=== PATIENT | female | born 1975 | race Caucasian/White ===

== ENCOUNTER 2025-08-21 05:01 | Emergency (ER) | payer MEDICAID, SELFPAY ==
--- OUTSIDE RECORDS SUMMARY | 2025-03-07 04:00 | XMS_ITS ---
Author Organization [facility] Address [address] [place] [address] Care Team Providers Care Health And Wellness Instructor Name Role Phone None, No PCP Primary Care Provider Hesham Chi Unavailable [phone] REASON FOR VISIT f/u Labs Encounters Encounter Location Date Provider Diagnosis [facility] [address] [place] [address] 03/07/2025 Hesham Astudillo Plan Of Treatment Next Appt Details Provider Name:Sharri buckley, 08/28/2025 03:45:00 PM, [address] [place], [address], Provider Name:Hesham Astudillo, 01/20/2026 03:45:00 PM, [address] [place], [address], Provider Name:Hesham Astudillo, 02/04/2026 09:30:00 AM, [address] [place], [address], Progress Notes * Jadyn KELLYDOB: 5 (50 yo F)Acc No.[id number]:03/07/2025 Patient:?Jadyn KELLY :?SHIRA MonroyB:1975???Age:49 Y ???Sex:FemaleDate:03/07/2025Phone:[phone]:[address] [facility] [place], [place]Vtl:No PCP None Subjective: * Chief Complaints: * 1 . f/u Labs. * Medical History: Objective: * Vitals: Assessment: Plan: * Treatment: * Images: Billing Information: * Visit Code: * Procedure Codes: * Electronic signature of Hesham Astudillo on 08/21/2025 at 06:35 AM CSTSign off status: Pending * Provider: ARACELIS Gomes Date: 0 03/07/2025 Generated for Printing/Faxing/eTransmitting on:?08/21/2025 06:35 AM RECOVERY OPERATOR HELPER
--- OUTSIDE RECORDS SUMMARY | 2025-04-25 04:30 | XMS_ITS ---
Author Organization [facility] Address [address] [place] [address] Care Team Providers Care Safety Deposit Clerk Name Role Phone None, No PCP Primary Care Provider Sharri Bhandari Unavailable [phone] Allergies No Known Allergies REASON FOR VISIT HRT LABS F/U, questions/concerns; Medications Medication SIG (Take, Route, Frequency, Duration) Notes Start Date End Date Status Lisinopril ActiveoxyBUTYninActiveMagnesiumActiveEstradiol 0.05 MG/24HR1 patch to skin Transdermal Two times a Week; Duration: 60 days5ActiveProgesterone 100 MG1 capsule at bedtime Orally Once a day; Duration: 90 days5Active Vitamin DActiveMisc Natural ProductLions ManeActiveVitamin B Plus+Active Ozagzhvkgbtr7ew lozenge 1/2 lozengeActiveEstradiol 0.0375 MG/24HR1 patch to skin Transdermal Two times a Week; Duration: 90 days5Active Social History Tobacco Use: Social History Observation Description Date Details (start date - stop date) Never Smoker NA - NA Tobacco Control (Standard) Question Answer Notes Tobacco use: Nonsmoker Encounters Encounter Location Date Provider Diagnosis [facility] [address] [place] [address] 04/25/2025 Sharri Guillaume Plan Of Treatment Next Appt Details Provider Name:Sharri buckley, 08/28/2025 03:45:00 PM, [address] [place], [address], Provider Name:Hesham Astudillo, 01/20/2026 03:45:00 PM, [address] [place], [address], Provider Name:Hesham Astudillo, 02/04/2026 09:30:00 AM, [address] [place], [address], Progress Notes * Jadyn KELLYDOB: 5 (50 yo F)Acc No.[id number]:04/25/2025 Patient:?Jadyn KELLY :?Sharri DomingoleDOB:1975???Age:50 Y ???Sex:FemaleDate:04/25/2025Phone:[phone]:[address] [facility]Pcp:No PCP None Subjective: * Chief Complaints: * 1 . HRT LABS F/U. 2. Questions/concerns;. * Medical History: D epression/ Anxiety, High blood pressure, Hemostasis. * Disposition Clerk History: ???Date of Last Period:?09/22/2024.? Control: ?IUD.?Sexual Activity?Currently sexually active.?Sexually Tranmitted Disease (STD)?None.? * OB History: ???GPAL?.? # 1:?2005. M 7lbs , normal spontaneous vaginal delivery ().&#16 0; ??? # 2:?2008, M 7lbs , normal spontaneous vaginal delivery ().&#16 0; * Surgical History: D enies Past Surgical History. * Hospitalization/Major Diagno stic Procedure: C hild . * Family History: Maternal Grandmother- Breast Cancer Mother- High Blood Pressure Father- Alzheimers disease. * Social History: ???Tobacco Use:?Tobacco Control (Standard)?Tobacco use:?Nonsmoker ???Drugs/Alcohol:?Caffeine?Intake:?none ?Do you smoke marijuana?: Denies. ?Do you drink alcohol?: No. ???Miscellaneous:?Exercise: no. * Medications: T aking Estradiol 0.0375 MG/24HR Patch Twice Weekly 1 patch to skin Transdermal Two times a Week , Taking Testosterone , Notes to Pharmacist: 8mg lozenge 1/2 lozenge, Taking Vitamin B Plus+ , Taking Misc Natural Product , Notes to Pharmacist: Lori Camiloe, Taking Vitamin D , Taking Magnesium , Taking oxyBUTYnin , Taking Lisinopril , Taking Progesterone 100 MG Capsule 1 capsule at bedtime Orally Once a day , Taking Estradiol 0.05 MG/24HR Patch Twice Weekly 1 patch to skin Transdermal Two times a Week , Medication List reviewed and reconciled with the patient * Allergies: N .K.D.A. Objective: * Vitals: Assessment: Plan: * Treatment: * Preventive Medicine: ??YOUR PREVENTIVE WELLNESS PLAN:?Breast Cancer Screening (Mammogram):?My last mammogram was done on:?04/16/2025 BI-RADS Category 1: Negative ?Cervical Cancer Screening (Pap Smear):?My last Pap smear was done on:?08/23/2022 ?Osteoporosis Screening (Bone Density Measurement):?My last bone density was done on:?Never ?Colorectal Cancer Screening:?Last Done Colonoscopy?08/24/2021 * Images: Billing Information: * Visit Code: * Procedure Codes: * Electronic signature of ARACELIS Davis on 08/21/2025 at 06:35 AM FOOD RUNNER Sign off status: Pending * Provider: Josep Guillaume Date: 0 04/25/2025 Generated for Printing/Faxing/eTransmitting on:?08/21/2025 06:35 AM FOOD RUNNER
--- OUTSIDE RECORDS SUMMARY | 2025-07-09 11:00 | XMS_ITS | Encounter Summary ---
Author Organization [facility] Address [address] [place] [address] Care Team Providers Care Estate Administrator Name Role Phone Shad Martell MD Unavailable [phone] LoriBin MD Primary Care Provider León Shepard OD Unavailable [phone] LoriBin MD Unavailable Bin Sandoval MD Unavailable Dallas Vergara Unavailable [phone] Jazz Howell PA-C Unavailable [phone] Jazz Howell PA-C Unavailable [phone] Encounter Details DateTypeDepartmentCare Team (Latest Contact Info)Hvaslrndkhu12/18/2025 11:00 AM CSTAllied Health/Nurse Visit [facility] [address] [facility] [address] [place] [address] Urge urinary incontinence (Primary Dx) Social History Tobacco UseTypesPacks/DayYears UsedDateSmoking Tobacco: VbhowwWsvadelxyd2Llsy: 2014Passive Smoke Exposure: PastSmokeless Tobacco: Never Comments:quit, was just ocas ionally 10 cigarettes on a weekend Alcohol UseStandard Drinks/WeekCommentsYes0 (1 standard drink = 0.6 oz pure alcohol)3-5 weekly, glass wineSocial Connection and Isolation PanelAnswerDate RecordedIn a typical week, how many times do you talk on the phone with family, friends, or neighbors?More than three times a week03/09/2022How often do you get together with friends or relatives?Three times a week03/09/2022How often do you attend muslim or buddhist services?Never03/09/2022o you belong to any clubs or organizations such as muslim groups, unions, fraternal or athletic groups, or school groups?No03/09/2022ttends Club or Organization MeetingsNot on file 03/09/2022re you , , , , never , or living with a partner?Mlsazag2303/09/2022UDIT-CAnswerDate RecordedQ1: How often do you have a drink containing alcohol?2-3 times a week03/09/2022Q2: How many drinks containing alcohol do you have on a typical day when you are drinking?1 or Q3: How often do you have six or more drinks on one occasion?Less than jnxldys6603/09/2022HQ-2AnswerDate RecordedPHQ-2 Bynrh876Finsteward health care system [place] of Occupational Health - Occupational Stress QuestionnaireAnswerDate RecordedDo you feel stress - tense, restless, nervous, or anxious, or unable to sleep at night because yourmind is troubled all the time - these days?Only a nvktrg6503/09/2022Exercise Vital SignAnswerDate RecordedOn average, how many days per week do you engage in moderate to strenuous exercise (like a brisk walk)?4 days03/09/2022n average, how many minutes do you engage in exercise at this level?50 min03/09/2022dolescent EducationAnswerDate RecordedGetting School Help NeededNot on file05/13/2023Food InsecurityAnswerDate RecordedWithin the past 12 months, did you worry that your food would run out before you got money to buy more?No08/10/2023Within the past 12 months, did the food you bought just not last and you didn???t have money to getmore?No08/10/2023Housing StabilityAnswer Date RecordedDo you have housing? (Housing is defined as stable permanent housing and does not include staying outside in a car, in a tent, in an abandoned building, in an overnight senior living, or couch-surfing.)Yes08/10/2023re you worried about losing your housing?No08/10/2023Financial Resource Strain AnswerDate RecordedWithin the past 12 months, have you or your family members you live with been unable to get utilities (heat, electricity) when it was really needed?No08/10/2023Transportation NeedsAnswerDate RecordedWithin the past 12 months, has lack of transportation kept you from medical appointments, getting your medicines, non-medical meetings or appointments, work, or from getting things that you need?No08/10/2023Interpersonal SafetyAnswerDate Recorded Do you feel physically and emotionally safe where you currently live?Yes 11/13/2024Within the past 12 months, have you been hit, slapped, kicked or otherwise physically hurt by someone?No11/13/2024Within the past 12 months, have you been humiliated or emotionally abused in other ways by your partner or ex-partner?No11/13/2024CommentsNoSex and Gender InformationValueDate RecordedSex Assigned at BirthNot on fileLegal LluKxdfqm90/04/2012 3:24 AM PATENT SEARCHER Gender ObqdsllyKhvobh69/25/2025 8:45 AM CDTSexual OrientationNot on file OccupationIndustryJob Start DateJob End DatesalesNot on fileNot on fileNot on fileself employedNot on fileNot on fileNot on filedocumented as of this encounter Progress Notes * Dianne Roberts CMA - 07/09/2025 11:00 AM CST Jadyn Kelly comes into clinic today at the request of Jazz Howell PA-C for PTNS treatment. This service provided today was under the direct supervision of Dr. Salas, who was available if needed. Percutaneous Tibial Nerve Stimulation (PTNS) Treatment number : 3 Percutaneous tibial nerve stimulation (PTNS) was prescribed for Jadyn Kelly's Overactive Bladder symptoms of urinary urgency. The needle electrode was inserted into the lower, inner aspect of the right leg. The surface electrode was placed on the inside arch of the foot on the treatment leg. The lead set was connected to the stimulator, and the needle electrode clip was connected to the needle electrode. The stimulator that produces an adjustable electrical pulse that travels to the sacralnerve plexus via the tibial nerve was adjusted to a setting of 1 with good toe curl noted. The patient experienced no changes since the last treatment. Edyta Roberts CMA NT SEARCHER documented in this encounter Plan of Treatment DateTypeDepartmentCare Team (Latest Contact Info)Ifocdnihlfz73/21/2026 10:15 AM CSTLab [facility] [address] [place] [address] 09/13/2025 10:00 AM CSTOncology Visit [address] [place] [address] [place] [address] [place], [place] [address] 09/13/2025 11:00 AM CSTInfusion Therapy Visit [address] [place] [phone] [place] [address] [place], [place] [address] documented as of this encounter Procedures Procedure NamePriorityDate/TimeAssociated DiagnosisCommentsPR POST TIBIAL NEUROSTIMULATION,PERC NEEDLE LSAFVOPPAAaiomar32/18/2025 11:31 AM PATENT SEARCHER Urge urinary incontinence documented in this encounter Visit Diagnoses Diagnosis Urge urinary incontinence- Primary Urge incontinence documented in this encounter Additional Health Concerns AssessmentNoted TimePHQ-9 Depression Total Score: 6003/27/2025 10:49 AM CDT documented as of this encounter Care Teams Team MemberRelationshipSpecialtyStart [place] [address] [place] [address] PCP - GeneralFamily Medicine09/11/23 Shad Martell MD [address], [facility] [address] [place] [address] MDHematology & Oncology02/24/23 León Shepard OD [address] [place] [address] Optometry11/15/24 [place] [address] [place] [address] Referring PhysicianFamily Medicine11/15/24 [place] [address] [place] [address] Assigned PCP12/12/24 [place] [address] [address] [facility] [address] [place] [address] Assigned Cancer Care Provider02/11/25 Jazz Howell PA-C [address] [place], [place] [address] Physician AssistantUrology02/13/25 Jazz Howell PA-C [address] [place], [place] [address] Assigned Surgical Provider04/13/25documented as of this encounter
--- OUTSIDE RECORDS SUMMARY | 2025-07-16 13:30 | XMS_ITS | Encounter Summary ---
Author Organization [facility] Address [address] [place] [address] Care Team Providers Care First Aid Attendant Name Role Phone Shad Martell MD Unavailable [phone] OlriBin MD Primary Care Provider León Shepard OD Unavailable [phone] LoriBin MD Unavailable Bin Sandoval MD Unavailable Dallas Vergara Unavailable [phone] Jazz Howell PA-C Unavailable [phone] Jazz Howell PA-C Unavailable [phone] Encounter Details DateTypeDepartmentCare Team (Latest Contact Info)Bfvlvbxebgz90/25/2025 1:30 PM CSTAllied Health/Nurse Visit [facility] Urology Clinic [address] [facility] [address] [place] [phone] Urinary urgency (Primary Dx) Social History Tobacco UseTypesPacks/DayYears UsedDateSmoking Tobacco: CewxmxZejrbrfkks2Shez: 2014Passive Smoke Exposure: PastSmokeless Tobacco: Never Comments:quit, [...] times a week03/09/2022How often do you attend advent or islam services?Never03/09/2022o you belong to any clubs or organizations such as advent groups, unions, fraternal or athletic groups, or school groups?No03/09/2022ttends Club or Organization MeetingsNot on file 03/09/2022re you , , , , never , or living with a partner?Hqnqyxf7503/09/2022UDIT-CAnswerDate RecordedQ1: How often do you have a drink containing alcohol?2-3 times a week03/09/2022Q2: How many drinks containing alcohol do you have on a typical day when you are drinking?1 or Q3: How often do you have six or more drinks on one occasion?Less than eoxivfi7603/09/2022HQ-2AnswerDate RecordedPHQ-2 Emebv345Finbeaver valley hospital [place] of Occupational Health - Occupational Stress QuestionnaireAnswerDate RecordedDo you feel stress - tense, restless, nervous, or anxious, or unable to sleep at night because yourmind is troubled all the time - these days?Only a iudafb1603/09/2022Exercise Vital SignAnswerDate RecordedOn average, how many days [...] in an abandoned building, in an overnight group home, or couch-surfing.)Yes08/10/2023re you worried about losing your [...] InformationValueDate RecordedSex Assigned at BirthNot on fileLegal NffSashhn21/04/2012 3:24 AM POSTPARTUM RN Gender BbyihlafVdtzda17/25/2025 8:45 AM CDTSexual OrientationNot on file OccupationIndustryJob Start DateJob End DatesalesNot on fileNot on fileNot on fileself employedNot on fileNot on fileNot on filedocumented as of this encounter Progress Notes * Dianne Roberts CMA - 07/16/2025 1:30 PM CST Jadyn Kelly comes into clinic today at the request of Jazz Howell PA-C for PTNS treatment. This service provided today was under the direct supervision of Dr. Salas, who was available if needed. Percutaneous Tibial Nerve Stimulation (PTNS) Treatment number : 4 Percutaneous tibial nerve stimulation (PTNS) was prescribed [...] nerve was adjusted to a setting of 3 with good toe curl noted. The patient experienced no changes since the last treatment. Edyta Roberts CMA PARTUM RN documented in this encounter Plan of Treatment DateTypeDepartmentCare Team (Latest Contact Info)Jkdsqyzrqaa14/21/2026 10:15 AM CSTLab [facility] [address] [place] [address] 09/13/2025 10:00 AM CSTOncology Visit [address] [place] [phone] [place] [address] [facility] [address] [place], [place] [address] 09/13/2025 11:00 AM CSTInfusion Therapy Visit [address] [place] [phone] [place] [address] [facility] [address] [place], [place] [address] documented as of this encounter Procedures Procedure NamePriorityDate/TimeAssociated DiagnosisCommentsPR POST TIBIAL NEUROSTIMULATION,PERC NEEDLE XHPYOPJICEllpesu57/25/2025 2:16 PM POSTPARTUM RN Urinary urgency documented in this encounter Visit Diagnoses Diagnosis Urinary urgency- Primary Urgency of urination documented in this encounter Additional Health Concerns AssessmentNoted TimePHQ-9 Depression Total Score: 6003/27/2025 10:49 AM CDT documented as of this encounter Care Teams Team MemberRelationshipSpecialtyStart [place] [address] [place] [address] PCP - GeneralFamily Medicine09/11/23 Shad Martell MD [address] [facility] [address] [place] [address] MDHematology & Oncology02/24/23 León Shepard OD [address] [place] [address] Optometry11/15/24 [place] [address] [place] [address] Referring PhysicianFamily Medicine11/15/24 [place] [address] [place] [address] Assigned PCP12/12/24 [place] [address] [address] [facility] [address] [place] [address] Assigned Cancer Care Provider02/11/25 Jazz Howell PA-C [address] [place], [place] [address] Physician AssistantUrology02/13/25 Jazz Howell PA-C [address] [place], [place] [address] Assigned Surgical Provider04/13/25documented as of this encounter
--- OUTSIDE RECORDS SUMMARY | 2025-08-12 04:30 | XMS_ITS ---
Author Organization [facility] Address [address] [place] [address] Care Team Providers Care Extension Clerk Name Role Phone None, No PCP Primary Care Provider UnavailSharri Donis Unavailable [phone] Allergies Allergen (clinical drug ingredient) Drug/Non Drug Allergy documented on EMR Reaction Allergy Type Onset Date Status angiotensin-converting enzyme inhibitor (FN) ZION Inhib itors Unknown Drug Allergy Active REASON FOR VISIT HRT f/U, questions/concerns: none, JL RMA Medications Medication SIG (Take, Route, Frequency, Duration) Notes Start Date End Date Status Estradiol 0.075 MG/24HR 1 patch to skin Transdermal Two times a Week; Duration: 90 days 5ActiveEstradiol 0.075 MG/24HR1 patch to skin Transdermal Two times a Week; Duration: 30 daysActiveProgesterone 200 MG1 capsule at bedtime Orally Once a day; Duration: 90 days5ActiveVitamin DActiveVitamin B Plus+Active IgfmcwngexLrcltjNjppfkykdTcvoauEhhzcdpprqli9vk lozenge 1/2 lozengeActive Social History Tobacco Use: Social History Observation Description Date Details (start date - stop date) Never Smoker NA - NA Tobacco Control (Standard) Question Answer Notes Tobacco use: Nonsmoker Vital Signs Blood pressure systolic 130 mm Hg 08/12/20 25 Blood pressure diastolic 80 mm Hg 025 Height 66 in 08/12/2025 Weight 182.2 lbs 08/12/2025 BMI 29.4 kg/m2 08/12/2025 Encounters Encounter Location Date Provider Diagnosis 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 Will return in the next 1-2 weeks for an afternoon lab draw. Assuming testosterone is in acceptable range, will plan on staying on current doses and following up in 6 months with labs 1 week prior Plan Of Treatment Medication Medication Name Sig Start Date Stop Date Notes Progesterone 100 MG TAKE ONE CAPSULE BY MOUTH AT BEDTIME Estradiol 0.075 MG/24HR1 patch to skin Transdermal Two times a Week; Duration: 90 days08/05/2025Progesterone 200 MG1 capsule at bedtime Orally Once a day; Duration: 90 days06/24/2025Treatment Notes Assessment Notes Hemochromatosis associated w ith mutation in HFE gene Lead Installer consulted, no concern with hemochromatosis and her T levels Other - continue on current therapies - we do not have an updated testosterone level. Will return in the next 1-2 weeks for an afternoon lab draw. Assuming testosterone is in acceptable range, will plan on staying on current doses and following up in 6 months with labs 1 week prior Next Appt Details Follow Up: 6 Months,kaityn, Zainab son: Provider Name:Sharri buckley, 08/28/2025 03:45:00 PM, [address], [place], [address], Provider Name:Hesham Astudillo, 01/20/2026 03:45:00 PM, [address] [place], [address], Provider Name:Hesham Astudillo, 02/04/2026 09:30:00 AM, [address] [place], [address], Progress Notes * Jadyn KELLYDOB: [birth year] (50 yo F)Acc No.[id number]:08/12/2025 Patient:?Jadyn KELLY :?Sharri DomingoleDOB:1975???Age:50 Y ???Sex:FemaleDate:08/12/2025Phone:[phone]:[address], [id number]:No PCP NoneCheck In:10:30 AM CSTCheck Out:10:52 AM SCHOOL CLERK Subjective: * Chief Complaints: * H RT f/UQuestions/concerns: noneJL RMA * HPI: ???*General:?Initial symptoms/complaints include??brain fog, Joint pain, Hot flashes, night sweats, hip pain, hand pain .?Ferritin checked monthly due to?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 PMH reviewed, also notable for HTN, anxiety, insomnia, herpes labalis. Jadyn Kelly, a perimenopausal woman, presents for follow-up of hormone replacement therapy.?She feels better being back on testosterone. Improvements in energy. Hot flashes continue to be resolved. No further vaginal bleeding since last appointment.? Current therapy Estradiol 0.75 mg transdermal patch twice weekly Progesterone 200 mg PO nightly 4 mg per half testosterone lozenge daily. * Medical History: * Manager Procurement History: ???Date of Last Period:?05/22/2025, 09/22/2024.? Control: ?IUD.?Sexual Activity?Currently sexually active.?Sexually Tranmitted Disease (STD)?None.? * OB History: ???GPAL?.? # 1:?2005. M 7lbs , normal spontaneous vaginal delivery ().&#16 0; ??? # 2:?2009, M 7lbs , normal spontaneous vaginal delivery ().&#16 0; * Surgical History: D enies Past Surgical History * Hospitalization/Major Diagno stic Procedure: C hild * Family History: Maternal Grandmother- Breast Cancer Mother- High Blood Pressure Father- Alzheimers disease. * Social History: ???Tobacco Use:?Tobacco Control (Standard)?Tobacco use:?Nonsmoker ???Drugs/Alcohol:?Caffeine?Intake:?none ?Do you smoke marijuana?: Denies. ?Do you drink alcohol?: No. ???Miscellaneous:?Exercise: no. * Medications: T akingTestosterone , Notes to Pharmacist: 8mg lozenge 1/2 lozengeVitamin B Plus+ Vitamin D Magnesium Lisinopril Progesterone 100 MG Capsule TAKE ONE CAPSULE BY MOUTH AT BEDTIME Progesterone 200 MG Capsule 1 capsule at bedtime Orally Once a day Estradiol 0.075 MG/24HR Patch Twice Weekly 1 patch to skin Transdermal Two times a Week Estradiol 0.075 MG/24HR Patch Twice Weekly 1 patch to skin Transdermal Two times a Week Taking Testosterone , Notes to Pharmacist: 8mg lozenge 1/2 lozengeTaking Vitamin B Plus+ Taking Vitamin D Taking Magnesium Taking Lisinopril Taking Progesterone 100 MG Capsule TAKE ONE CAPSULE BY MOUTH AT BEDTIME Taking Progesterone 200 MG Capsule 1 capsule at bedtime Orally Once a day Taking Estradiol 0.075 MG/24HR Patch Twice Weekly 1 patch to skin Transdermal Two times a Week Taking Estradiol 0.075 MG/24HR Patch Twice Weekly 1 patch to skin Transdermal Two times a Week DiscontinuedoxyBUTYnin Medication List reviewed and reconciled with the patientDiscontinued oxyBUTYnin Medication List reviewed and reconciled with the patient * Allergies: A CE Inhibitorsno[Allergies Verified] Objective: * Vitals: H t: 66 in, Wt:182.2lbs, BP:130/80mm Hg, BMI:29.4Index. * P ast Orders: L ab:Testosterone, Total (IH) (Order Date - 05/28/2025) (Collection Date & Time - 05/29/2025 12:30 PM) Value Reference Range Testosterone, Total (IH) 45 0-75 - ng/dL * Lab:FSH * Collection Date 05/29/2025 04/15/2025 Collection Time 03:21 AM 01:55 PM Order Date 05/28/2025 04/15/2025 FSH 13.5 (Ref Range: mIU/mL)46.9 (Ref Range: mIU/mL) * Lab:ESTRADIOL * Collection Date 05/29/2025 04/15/2025 Collection Time 03:21 AM 01:55 PM Order Date 05/28/2025 04/15/2025 ESTRADIOL 68 (Ref Range: pg/mL)29 (Ref Range: pg/mL) * Examination: ???*General Examination: ?GENERAL APPEARANCE:?in no acute distress, alert, well hydrated, in no distress.? Assessment: * Assessment: 1.?Menopausal and female climacteric states - N95.1 (Primary)???2.?Low test osterone level in female - E34.9???3.?Hemochromatosis associated with mutation i n HFE gene - E83.110??? Plan: * Treatment: Stop Progesterone Capsule, 100 MG, TAKE ONE CAPSULE BY MOUTH AT BEDTIME;?Refill Progesterone Capsule, 200 MG, 1 capsule at bedtime, Orally, Once a day, 90 days, 90 Capsule, Refills 1;?Refill Estradiol Patch Twice Weekly, 0.075 MG/24HR, 1 patch to skin, Transdermal, Two times a Week, 90 days, 24, Refills 1.?? 2.?Hemochromatosis 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? Notes: Lead Installer consulted, no concern with hemochromatosis and her T levels??3.?Others? Notes: - continue on current therapies - we do not have an updated testosterone level. Will return in the next 1-2 weeks for an afternoon lab draw. Assuming testosterone is in acceptable range, will plan on staying on current doses and following up in 6 months with labs 1 week prior ?? * Procedure Codes: * Preventive Medicine: ??YOUR PREVENTIVE WELLNESS PLAN:?Breast Cancer Screening (Mammogram):?My last mammogram was done on:?04/16/2025 BI-RADS Category 1: Negative ?Cervical Cancer Screening (Pap Smear):?My last Pap smear was done on:?08/23/2022 ?Osteoporosis Screening (Bone Density Measurement):?My last bone density was done on:?Never ?Colorectal Cancer Screening:?Last Done Colonoscopy?08/24/2021 * Follow Up: 6 Months,prn * Images: Billing Information: * Visit Code: 90623 Office Visit, Est Pt., Level 3. * Procedure Codes: * OL CLERK Sign off status: Completed true * Provider: Josep Guillaume Date: 10/13/2024 Generated for Printing/Faxing/eTransmitting on:?08/21/2025 06:35 AM SCHOOL CLERK History and Physical Notes * Examination CategorySub-CategoryDetailNotesCategory Notes*General ExaminationGENERAL APPEARANCE:in no acute distress, alert, well hydrated, in no distress
[2025-08-21 05:05] VITALS: BP 153/90; PULSE 117; RESP 16; TEMP 36.7; O2SAT 93; BMI 28.2
--- NOTE | 2025-08-21 05:34 | CRLHL7_ITS ---
For Patients: As a result of the Century Cures Act, medical imaging exams and procedure reports are released immediately into your electronic medical record. You may view this report before your referring provider. If you have questions, please contact your health care provider. INDICATION: Chest pain. TECHNIQUE: Chest 2 views. COMPARISON: None. FINDINGS: Cardiovascular and mediastinum: Heart size is normal. Unremarkable mediastinum. Lungs and pleural spaces: Lungs are clear. No pneumothorax or pleural effusion. Bones and soft tissues: No significant findings. IMPRESSION: No acute findings. Dictated by Cary Enriquez MD @ 08/21/2025 6:43:57 AM (Electronically Signed)
--- NOTE | 2025-08-21 05:39 | ED.GENADULT ---
HPI - General Adult General Chief complaint: Chest Pain Stated complaint: chest/back pain Time Seen by Provider: 08/21/25 05:11 Source: patient Mode of arrival: ambulatory Limitations: no limitations History of Present Illness HPI narrative: 50-year-old female presents the emergency department in the wee hours for evaluation of chest pain she notes that this is substernal, radiates to both shoulders and to the back and worsens with taking drinks of water. No trauma or injury. No nausea or vomiting. No bloody stools. No prior history of similar symptoms. No personal history of cardiac disease, DVT or PE. Not noting any feelings of arrhythmia. Episodic pain 7/10 in intensity when the episodes come which last 5-10 minutes. Pain initially started at 9:00 p.m. last night, lasted about 5-10 minutes and then resolve spontaneously. Woke with symptoms at about 1:00 a.m. again and lasted a similar amount of time. Do seem to be worsened by taking drinks of water. Currently asymptomatic. Symptoms are nonexertional. Did not try taking any treatments prior to coming to the ED. Noted to be tachycardic in triage. Does feel a little bit short of breath with episodes but not in between. Has had a dry cough and scratchy throat for less than 24 hours. Past medical history is notable for hypertension, takes losartan for this. She does also use topical transdermal estrogen and oral progesterone as well as Adderall. Adderall could explain the tachycardia. Allergy to Carroll inhibitors causing a cough. Nonsmoker. ROS is notable for the chest symptoms as well as some vague shortness of breath and cough as above, otherwise denies times 12 systems. Related Data Previous Rx's ?Medication ?Instructions ?Recorded oseltamivir 75 mg capsule (Tamiflu) 75 mg PO BID 5 days #10 caps 08/21/25 Allergies Allergy/AdvReac Type Severity Reaction Status Date / Time CARROLL Inhibitors Allergy Cough Verified 08/21/25 05:10 Exam Const: Vital Signs, click to edit/add: Vital Signs - 24 hr 08/21/25 05:05 Temperature 98.1 F Pulse Rate [Pulse Oximeter] 117 H Respiratory Rate 16 Blood Pressure [Ri ght Upper Arm] 153/90 H Pulse Oximetry 93 Oxygen Delivery Me thod Room Air Documenting provider has reviewed patient's vital signs: yes Common normals: no apparent distress and alert General appearance: cooperative HENMT: Common normals: normocephalic, moist oral mucous membranes and oropharynx normal Head and scalp: normocephalic Face and sinus: normal facial exam Mouth: oral and palatal mucosa normal Throat: posterior oropharynx normal Eye: Common normals: conjunctivae normal General eye: normal appearance of both eyes Conjunctiva: conjunctiva(e) normal Neck & C-Spine: Common normals: full ROM and no lymphadenopathy General: normal visual inspection Chest: Common normals: inspection of chest normal Resp: Common normals: normal respiratory effort, no use of accessory muscles and clear to auscultation bilaterally Effort & inspection: able to speak in complete sentences Auscultation: clear to auscultation bilaterally Cardio: Common normals: regular rate, regular rhythm, S1 normal heart sound, S2 normal heart sound and no murmurs Rate: regular rate Rhythm: regular rhythm Heart sounds: S1 normal and S2 normal GI: Common normals: Normal to inspection, nondistended, normoactive bowel sounds present, soft to palpation, non-tender, no hepatosplenomegaly and no masses Palpation: soft and no hepatosplenomegaly Extremity: Common normals: normal capillary refill Neuro: Sensorium/orientation: alert Speech: speech normal Motor exam: strength 5/5 throughout Psych: Attitude: engaged Activity/motor behavior: appropriate eye contact Attention/concentration: attention grossly intact Memory/cognition: memory grossly intact Skin: Common normals: no rashes or lesions noted General skin exam: no rashes or lesions noted Course Course ED Course: 50-year-old female presenting with chest pain that seems to be brought on by esophageal stretching, no prior history of endoscopy or known GERD. Is having some vague viral symptoms such to scratchy throat and cough as well that could be related. Differential diagnosis also including acute coronary syndrome, arrhythmia, pulmonary embolism, bronchitis, pneumonia, GERD, gallbladder disease, amongst others. Noted to have some tachycardia in triage, blood pressure slightly elevated. This certainly could be from her Adderall but could indicate more serious pathology. Will obtain EKG, chest x-ray, typical cardiac labs including D-dimer. Will try famotidine and a GI cocktail as her symptoms really do seem to be triggered by soft and she will stretch. Await clinical response and findings from labs and imaging. Reevaluation(s) Time of Reevaluation #1: 06:48 Reevaluation #1: Patient noticing improvement of her symptoms after the GI cocktail. We reviewed her normal x-ray and lab findings. The only stand out was that she is positive for influenza A. I do certainly think this explains her shortness of breath, scratchy throat, cough and feeling unwell. It may be causing some GI irritation that is causing the esophageal spasm that caused her to come in today. But she certainly could have some underlying GERD or chronic irritation. We discussed Tamiflu. She accepts the risks and benefits of this medication, 1 pill 2 times daily for 5 days sent to local pharmacy. Quarantine for at least 24 hours after starting the Tamiflu. Discussed typical course of influenza and alarm symptoms that would warrant re-evaluation. I do think that this chest pain is related to some chronic cardiac issues and I would like for her to start taking famotidine 20 mg once daily for the next 2 weeks. If she has persistent symptoms, she should follow-up with her primary care doctor to discuss further testing and possibly endoscopy. Patient verbalizes understanding and agreement. Written instructions provided. Vital Signs Vital signs: Initial Vital Signs Temperature 98.1 F 08/21/25 05:05 Temperature Source Temporal Artery Scan 08/21/25 05:05 Pulse Rate 117 H 08/21/25 05:05 Respiratory Rate 16 08/21/25 05:05 Blood Pressure 153/90 H 08/21/25 05:05 Blood Pressure Mean 111 H 08/21/25 05:05 Blood Pressure Position Sitting 08/21/25 05:05 Pulse Oximetry 93 08/21/25 05:05 Oxygen Delivery Method Room Air 08/21/25 05:05 Vital Signs Temperature 98.1 F 08/21/25 05:05 Pulse Rate 117 H 08/21/25 05:05 Respiratory Rate 16 08/21/25 05:05 Blood Pressure 153/90 H 08/21/25 05:05 Pulse Oximetry 93 08/21/25 05:05 Oxygen Delivery Method Room Air 08/21/25 05:05 Temperature 98.1 F 08/21/25 05:05 Pulse Rate 117 H 08/21/25 05:05 Respiratory Rate 16 08/21/25 05:05 Blood Pressure 153/90 H 08/21/25 05:05 Pulse Oximetry 93 08/21/25 05:05 Oxygen Delivery Method Room Air 08/21/25 05:05 Medications Administered Medications: Discontinued Medications Generic Name Dose Route Start Last Admin Trade Name Floresita PRN Reason Stop Dose Admin Famotidine 20 mg 08/21/25 05:34 08/21/25 05:44 Famotidine 20 Mg Tablet PO 08/21/25 05:35 20 mg ONCE ONE Administration Lidocaine/Aluminum/Magnesium/Simeth 30 ml 08/21/25 05:34 08/21/25 05:44 Gi Cocktail (Visc Lido/Antacid) 30 Ml PO 08/21/25 05:35 30 ml ONCE ONE Administration Medical Decision Making Lab Data Lab results reviewed: Yes I reviewed the patient's lab results Lab results narrative: Positive for influenza a, remainder of labs are otherwise reassuring. Labs: Lab Results 08/21/25 08/21/25 Range/Units 05:15 05:45 WBC 6.09 (4.50-11.00) K/uL RBC 4.30 (4.00-5.20) m/uL Hgb 14.8 (12.0-16.0) gm/dL Hct 42.2 (33.0-51.0) % MCV 98 (80-100) fL MCH 34 (26-34) pg MCHC 35 (32-36) gm/dL RDW Coeff of Eliana 11.6 (11.5-15.5) % Plt Count 157 (140-440) K/uL Neut % (Auto) 89.0 H (42.0-72.0) % Lymph % (Auto) 4.4 L (20-44) % Branch % (Auto) 4.8 (0.0-11.0) % Eos % (Auto) 1.0 (0.0-7.0) % Baso % (Auto) 0.5 (0.0-3.0) % Neut # (Auto) 5.40 (1.7-7.0) K/uL Lymph # (Auto) 0.30 L (0.90-2.90) K/uL Branch # (Auto) 0.30 (0.00-0.90) K/UL Eos # (Auto) 0.06 (0.00-0.50) K/uL Baso # (Auto) 0.03 (0.00-0.30) K/uL Abs Immat Gran (auto) 0.02 (0.00-0.30) K/uL Imm/Tot Granulo (auto) 0.3 % D-Dimer Quant (PE/DVT) 0.39 (0.00-0.50) ug/ml Sodium 133 L (135-149) mmol/L Potassium 4.3 (3.6-5.1) mmol/L Chloride 100 (96-114) mmol/L Carbon Dioxide 26 (20-32) mmol/L Anion Gap 7 (7-15) mEq/L BUN 12 (7-30) mg/dL Creatinine 0.6 (0.5-1.5) mg/dL Estimated Creat Clear 105.01 Estimated GFR 109 ml/min Glucose 120 H (60-115) mg/dL Calcium 9.4 (8.4-10.6) mg/dL Total Bilirubin 0.4 (0.1-1.5) mg/dL AST 54 H (12-35) U/L ALT 35 (4-35) U/L Alkaline Phosphatase 56 (40-150) U/L Troponin I < 0.01 (0.01-0.04) ng/mL C-Reactive Protein 1.1 H (0.5-1.0) mg/dL NT-Pro-B Natriuret Pep < 20 (See Note) pg/mL Total Protein 7.0 (6.0-8.3) g/dL Albumin 4.3 (3.3-5.0) g/dL SARS-CoV-2 (PCR) Negative SARS-CoV-2 (Negative) Influenza Type A (PCR) POSITIVE PCR FLU A A (Negative) Influenza Type B (PCR) Negative PCR FLU B (Negative) RSV (PCR) Negative PCR RSV (Negative) Imaging Data Chest x-ray: Attestation: I have reviewed the pertinent imaging results. My impression: Normal chest x-ray. No effusions, infiltrates, cardiac enlargement or other abnormalities. Radiologist's impression: FINDINGS: Cardiovascular and mediastinum: Heart size is normal. Unremarkable mediastinum. Lungs and pleural spaces: Lungs are clear. No pneumothorax or pleural effusion. Bones and soft tissues: No significant findings. IMPRESSION: No acute findings. Dictated by Cary Enriquez MD @ 08/21/2025 6:43:57 AM Discharge Plan Discharge Clinical Impression: Influenza A, Esophageal pain Patient Disposition: Home w/ Parent or Adult Condition: Improved Instructions: Influenza (DC) Additional Instructions: as we discussed, the workup to look for dangerous with the heart, lungs, any blood clots or severe infections was thankfully negative and reassuring today. No signs of any complications with those organs. He did test positive for influenza a and I do think that your having some spasm of the esophagus likely related to the influenza but possibly from some underlying chronic irritation as well. I would recommend that you start taking famotidine which is an shqx-jpb-dvqsdbn antacid medicine 1 pill once daily 20 minutes before your largest meal to help heal any stomach and esophageal irritation. Please take this for the next 2 weeks. I would like for you to make a follow-up appointment with her primary care doctor if you continue to have symptoms as I would recommend that we proceed with an endoscopy at that point. As for the influenza, this is highly contagious. You are at low risk of complications. But I would recommend since it does seem reliable that you have only been symptomatic for less than 24 hours that you begin Tamiflu which is an antiviral medication 1 pill 2 times daily. It is okay for you to use Tylenol and or ibuprofen as needed for fever, body aches, headache that are likely to evolve. Unfortunately this strain of fluid tends to be fairly severe and most people are sick for 5-7 days. You would be considered non contagious 24 hours after starting the Tamiflu. Foremost, we recommend quarantine for 48 hours if possible. You should return to the emergency department if you have severe shortness of breath, severe weakness or other alarming symptoms. Activity Level: Activity as Tolerated Discharge Diet: Regular Prescriptions: New oseltamivir [Tamiflu] 75 mg capsule 75 mg PO BID 5 Days Qty: 10 0RF Follow Up/Referrals: Bin Sandoval MD [Primary Care Provider, Family Practice] Stand Alone Forms: [employer] Info Instructions
[2025-08-21] MEDS: FAMOTIDINE 20 MG TABLET PO (05:44)
[2025-08-21] MEDS: GI COCKTAIL (VISC LIDO/ANTACID) 30 ML PO (05:44)
[2025-08-21 05:53] LABS: Hematocrit* 42.2 % (33.0-51.0); Hemoglobin* 14.8 gm/dL (12.0-16.0); Immature Granulocytes Abs Auto 0.02 K/uL (0.00-0.30); Immature Granulocytes Pct Auto 0.3 %; Mean Corpuscular HGB Conc 35 gm/dL (32-36); Mean Corpuscular Hemoglobin 34 pg (26-34); Mean Corpuscular Volume 98 fL (80-100); RDW Coefficient of Variation % 11.6 % (11.5-15.5); Red Blood Count* 4.30 m/uL (4.00-5.20); White Blood Count* 6.09 K/uL (4.50-11.00)
[2025-08-21 05:58] LABS: Lymphocytes Absolute Auto 0.30 K/uL (0.90-2.90); Slide Review Reflex No
[2025-08-21 05:58] LABS: PCR FLU A POSITIVE PCR FLU A (Negative); PCR FLU B Negative PCR FLU B (Negative); PCR RSV Negative PCR RSV (Negative); SARS PCR* Negative SARS-CoV-2 (Negative)
[2025-08-21 06:05] LABS: Albumin* 4.3 g/dL (3.3-5.0); Chloride* 100 mmol/L (96-114); Sodium* 133 mmol/L (135-149)
[2025-08-21 06:06] LABS: Potassium* 4.3 mmol/L (3.6-5.1)
[2025-08-21 06:08] LABS: Blood Urea Nitrogen* 12 mg/dL (7-30); Creatinine* 0.6 mg/dL (0.5-1.5); Est. Creatinine Clearance* 105.01; Estimated Glomerular Filt Rate 109 ml/min
[2025-08-21 06:09] LABS: Alanine Aminotransferase* 35 U/L (4-35); Alkaline Phosphatase* 56 U/L (40-150); Anion Gap 7 mEq/L (7-15); Aspartate Amino Transferase* 54 U/L (12-35); Bilirubin Total* 0.4 mg/dL (0.1-1.5); Calcium* 9.4 mg/dL (8.4-10.6); Carbon Dioxide* 26 mmol/L (20-32); Glucose* 120 mg/dL (60-115); Total Protein* 7.0 g/dL (6.0-8.3)
[2025-08-21 06:11] LABS: D Dimer Quantitative* 0.39 ug/ml (0.00-0.50)
[2025-08-21 06:20] LABS: NT Pro B Type NatriureticPept* < 20 pg/mL (See Note)
--- OUTSIDE RECORDS SUMMARY | 2025-08-21 06:35 | XMS_ITS | Clinical Summary ---
Author Organization [facility] [facility] Address [address] [place] [address] Care Team Providers Care Forest Logistics Manager Name Role Phone Shannan Coats MD Primary Care Provider + [phone] Allergies No known active allergies Medications MedicationSigDispense QuantityRefillsLast FilledStart DateEnd DateStatus sertraline (ZOLOFT) 50 mg tablet Indications:Generalized anxiety disorderTAKE ONE TABLET BY MOUTH EVERY DAY 60 Tablet 03/10/2021ctive valACYclovir (VALTREX) 1 gram tablet Indications:Herpes simplex labialisTake 2 tablets twice daily 12 hours apart 12 Tablet 07/29/2021ctive zolpidem (AMBIEN) 10 mg tablet Indications:Insomnia, idiopathicTake 1 Tablet (10 mg) by mouth at bedtime. 90 Tablet 09/08/2021ctive oxybutynin XL (DITROPAN XL) 10 mg CR tablet Take 10 mg by mouth.12/09/2022ctive semaglutide (OZEMPIC) 2 mg/3 mL pen Inject 0.25 mg subcutaneous.12/09/2022ctive ondansetron (ZOFRAN) 4 mg tablet TAKE 1 TABLET BY MOUTH EVERY 8 HOURS NEEDED FOR TWMTVR3210/06/2022ctive Active Problems ProblemNoted DateDiagnosed DateGeneralized anxiety esxifoir37/22/2021Other esqaoxs6010/13/2020Gout, sgliwxcapcx65/22/2021Myopia of right eye01/19/2019Myopia of left eye with rkgeieectxh08/31/0789Dzbritzs88/15/2005 Overview (09/08/2021): Problem list name updated by automated process. Provider to review Immunizations ImmunizationAdministration DatesNext DueCOVID-19 vaccine ([employer] 30mcg/0.3mL) PF, MDV09/08/2021,02/16/2021,01/23/2021Hepatitis A (Adult) 10/15/2010Hepatitis A, Phdyclpppjz60/24/2011Hepatitis B (Adult)10/15/2010, 11/09/2000Influenza, VUU191Influenza,LAIV4 Live Intranasal (Flumist) 05/21/2014Tdap09/08/2021,05/22/2010 Family History Medical HistoryRelationNameCommentsSkin cancerFatherCancer-breastMaternal AuntX 3Cancer-breastMaternal GrandmotherDECEASED AGE 62HyperlipidemiaMother HypertensionMotherRelationNameStatusCommentsFatherMaternal AuntX 3AliveMaternal GrandmotherDeceasedMother Social History Tobacco UseTypesPacks/DayYears UsedDateSmoking Tobacco: NeverSmokeless Tobacco: Never Tobacco Cessation:Counseling Given: Yes Alcohol UseStandard Drinks/WeekCommentsYes0 (1 standard drink = 0.6 oz pure alcohol)occassionalPHQ-2AnswerDate RecordedPHQ-2 TOTAL ZOHUM888Financial Resource StrainAnswerDate RecordedDifficulty of Paying Living ExpensesNot on file1Difficulty of Paying Living ExpensesNot on file1 CommentsNoSex and Gender InformationValueDate RecordedSex Assigned at BirthNot on fileLegal PmlKxfzwv00/14/2013 7:07 AM CSTGender IdentityNot on fileSexual OrientationNot on file Last Filed Vital Signs Vital SignReadingTime TakenCommentsBlood Sjillagb604/8205 2:43 PM CDT Hvrqs855609/08/2021 3:32 PM PZZJhdwdgvoota77.5 ??C (97.7 ??F)09/08/2021 3:32 PM CSTRespiratory Lude447009/08/2021 3:32 PM CSTOxygen Swhlryxwyl06%09/08/2021 3:32 PM CSTInhaled Oxygen Concentration--Uihqgp81.8 kg (182 lb 9.6 oz)12/28/2022 2:43 PM KKLNjjrbr685.6 cm (5' 6)09/08/2021 3:32 PM CSTBody Mass Index29.47009/08/2021 3:32 PM MID LEVEL CLINICIAN Plan of Treatment Health MaintenanceDue DateLast DoneCommentsHIV for age 15-Hepatitis C screening for age 18-Hepatitis B series for 19+ (3 of 3 - 19+ 3- dose series), 11/09/2000Depression screening for age 12+ /04/2021, 01/24/2019Pap test for age 21-BMI (ht and wt on same day) for age 18+/, 10/28/2020, 09/03/2019, Additional history existsMammogram for age 40-750/03/2022, 07/27/2017, 07/19/2017, Additional history existsLipids for age 45-01/24/2019Pneumococcal series for age 50+ (1 of 1 - PCV)2025Zoster (shingles) series for age 50+ (1 of 2)5COVID-19 vaccine series (2024- season), 02/16/2021, 01/23/2021Influenza Vaccine (#1)509/, 10/15/2010Tetanus buslypt67, 05/22/2010Colonoscopy through age 7504//, 12/08/2021, 12/08/2021 RSV vaccine for adults or (1 - 1-dose 75+ series)2050 Procedures Procedure NamePriorityDate/TimeAssociated DiagnosisCommentsXR MAMMO BILAT HMRKQTTDHNljagvj34/08/2022 12:39 PM CDT Visit for screening mammogram ZNUXPNPJWYV22/19/2022 10:40 AM CDT LIPID PANEL W REFLEX MEASURED KNVVhbznga92/05/2019 3:17 PM CDT Screening cholesterol level [employer] THIN PREP PAP SCREEN QIYCRMTpqqdyn06/05/2019 3:05 PM CDT Cervical cancer screening from Last 3 Months or Most Recently Relevant to Health Maintenance Results * XR MAMMO BILAT SCREENING (01/27/2022 12:39 PM CDT)Anatomical RegionLaterality ModalityBREASTS, Breast Left, Breast RightBilateralMammographySpecimen (Source)Anatomical Location / LateralityCollection Method / VolumeCollection TimeReceived Time Impressions 01/28/2022 3:33 PM CDT There is no radiographic evidence for malignancy. Recommend annual mammograms. MAMMOGRAM ASSESSMENT: ??ACR 1 Negative PATIENTS: You will also receive a letter with your examination results in an easy to read format. ??If you have questions about your results, please contact your referring provider. Narrative 01/28/2022 3:33 PM CDT For Patients: As a result of the Century Cures Act, medical imaging exams and procedure reports are released immediately into your electronic medical record. You may view this report before your referring provider. If you have questions, please contact your health care provider. XR MAMMO BILAT SCREENING [[id number]] CLINICAL HISTORY: ??This is an asymptomatic 46 y.o. patient. INDICATION FOR EXAM: Mammogram Screening. TECHNIQUE: CC & MLO views were obtained. This study was evaluated with the assistance of Computer-Aided Detection. COMPARISON FILM: Yes 07/19/17 ?? 04/19/16 ?? FINDINGS: ??The breasts are heterogeneously dense, which may obscure small masses. There are no dominant masses, suspicious micro calcifications or areas of architectural distortion. Authorizing ProviderResult TypeResult StatusAmy Mechelle Altamiranoyi MDMAMMOFinal Result * COLONOSCOPY (12/08/2021 10:40 AM CDT)Specimen (Source)Anatomical Location / LateralityCollection Method / VolumeCollection TimeReceived Time12/08/2021 10:40 AM CDT Narrative Transcriptions Cleve Salas MD - 12/08/2021 11:10 AM CDT Patient Name: Jadyn Kelly Procedure Date: 12/08/2021 Gender: Female Date of : 1975 Admit Type: Outpatient Procedure: Colonoscopy Proceduralist: Cleve Salas MD , Rosaura Avila (Nurse) Referring MD: Shannan Coats Indications/Pre-Op Diagnosis: Screening for colorectal malignant neoplasm, This is the patient's first colonoscopy Medications: Fentanyl 200 micrograms IV, Midazolam 4 mgIV, The level of sedation administered wasmoderate Procedure Description: The patient had risks, benefits and alternatives explained to andgave informed consent. The patient had a stable cardiopulmonary status and judged an adequate candidate for conscious sedation. The Colonoscope was passed through the anus and advanced to thececum, identified by appendiceal orifice and ileocecal valve. Thecolonoscopy was performed without difficulty. The patient tolerated the procedure well. The quality of the bowel preparation was good. The ileocecal valve, appendiceal orifice, and rectum were photographed. Complications: No immediate complications. Estimated Blood Loss & Specimen: Estimated blood loss: none. Specimen collected - None Findings: Skin tags were found on perianal exam. The entire examined colon appeared normal on direct and retroflexion views. Impressions/Post-Op Diagnosis: - Perianal skin tags found on perianal exam. - The entire examined colon is normal on direct and retroflexionviews. - No specimens collected. Recommendation: - Patient has a contact number available for emergencies. The signsand symptoms of potential delayed complications were discussed with the patient. Return to normal activities tomorrow. Written discharge instructions were provided to the patient. - Resume previous diet. - Continue present medications. - Repeat colonoscopy in 10 years for screening purposes. - Patient's sedation for a repeat study will require Anesthesia staff assistance. Moderate Sedation: Moderate (conscious) sedation was administered by the endoscopy nurse and supervised by the endoscopist. The following parameters were monitored: oxygen saturation, heart rate, respiratory rate, blood pressure, adequacy of pulmonary ventilation and reponse to care. Please refer to the patient's medical record flowsheets and nursing notes for moderate sedation details. Total physician intraservice time was 17 minutes. Cleve Salas MD 12/08/2021 11:10:16 AM This report has been signed electronically. Note Initiated On: 12/08/2021 10:40 AM Scope In: 10:50:50 AM Scope Withdrawal Time 0 hours 6 minutes 31 seconds Scope Out: 11:04:30 AM Authorizing ProviderResult TypeResult StatusMarshyam Salas MDPROCEDURE ORD Final Result * LIPID PANEL W REFLEX MEASURED LDL (01/24/2019 3:17 PM CDT)ComponentValueRef RangeTest MethodAnalysis TimePerformed AtPathologist Signature CHOLESTEROL,[id number] - 199 mg/dL01/24/2019 8:04 PM [facility] AIZELADXKATGCXCZYIRQQEF88<150 mg/dL01/24/2019 8:04 PM CDT [facility]-CENTRAL LABORATORYHDL BKCDEYTWSOA71>40 mg/dL 01/24/2019 8:04 PM [facility] LABORATORYNON-HDL KJGKEDRLQNZ58<145 mg/dl01/24/2019 8:04 PM [facility] LABORATORYCHOL/HDL RATIO2.07<4.50001/24/2019 8:04 PM [facility]-CENTRAL LABORATORYLDL POGVHOOZARH13<=130 mg/dL01/24/2019 8:04 PM [facility]EN[facility]AL LABORATORYPROVIDER ORDERED STATUSRANDOM 01/24/2019 8:04 PM [facility]-CEN[facility]AL LABORATORYSpecimen (Source)Anatomical Location / LateralityCollection Method / VolumeCollection TimeReceived TimeBloodBLOOD SPECIMEN / UnknownButterfly / Xwjvgbx4001/24/2019 3:17 PM CDT01/24/2019 3:17 PM CDT Narrative Authorizing ProviderResult TypeResult StatusSherri Tracy Luna DOCHEMISTRYFinal ResultPerforming OrganizationAddressCity/State/ZIP CodePhone Number [facility] [address] [place] [address], * [employer] THIN PREP PAP SCREEN IMAGED (01/24/2019 3:05 PM CDT)ComponentValueRef RangeTest MethodAnalysis TimePerformed AtPathologist SignatureCase Report Gynecologic Cytology Report ? Case: [id number] ? Authorizing Provider: ??Apurva Luna, DO ? Collected: ? 01/24/2019 1505 ? Ordering Location: ? [facility] ?? Received: ?01/24/2019 1534 ? Clinic ? First Screen: ?Akin Ramirez ? Specimen: ?[employer] ThinPrep Vial Screening, Cervical ? 01/31/2019 12:31 PM [facility] INTERPRETATION/RESULTNEGATIVE FOR INTRAEPITHELIAL LESION OR MALIGNANCY (NIL) (none)01/31/2019 12:31 PM [facility] at 1231 CDTSPECIMEN [facility] Endocervical component vdgcksr4701/31/2019 12:31 PM [facility]ORATORYHPV REQUESTHPV if ASCUS01/31/2019 12:31 PM [facility] LABORATORYDate of LMP5//41698401/31/2019 12:31 PM [facility] LABORATORYLast Pap Dvfnhzrkytq47/12/2019 12:31 PM CDT [facility] LABORATORYLast Pap ResultFirst Pap/Unknown 01/31/2019 12:31 PM [facility] LABORATORYAbnormal Pap or [place] Bx in last 5 inbkfDg4101/31/2019 12:31 PM [facility]- [facility] LABORATORYMenstrual StatusHormonally Ukmoznsazy46/12/2019 12:31 PM [facility] LABORATORYColp Bx Done WotjxTw7001/31/2019 12:31 PM [facility] LABORATORYAdditional InformationNone given01/31/2019 12:31 PM [facility]-C[facility] LABORATORYAutomated EewkdhQvkkrczcik19/12/2019 12:31 PM [facility] LABORATORYComment:Specimen processed successfully by automated vehicle technician device, ThinPrep Imaging System, [employer]NoteThe pap test is a screening technique, not a diagnostic procedure. ??It is used primarily to screenfor squamous cancers and precursor lesions. ??Published studies have shown that it is subject to both false negative and false positive results. ??The pap test should not be used as the sole means todiagnose or exclude pre-malignant and malignant lesions. Cytology is screened and interpreted at [facility] - [address], [place] [address] and [facility] - [address]; [place] [address] and [facility] - [address]; [place] [address] and [facility] [address]; [place] [address] 01/31/2019 12:31 PM [facility]-CENTRAL LABORATORYSpecimen (Source)Anatomical Location / LateralityCollection Method / VolumeCollection TimeReceived TimeOther (Cervical)Non-Blood / Uffxusy0001/24/2019 3:05 PM CDT 01/24/2019 3:34 PM CDT Narrative Authorizing ProviderResult TypeResult StatusSherri Tracy Oetken DO PATHOLOGY/CYTOLOGYFinal ResultPerforming OrganizationAddressCity/State/ZIP Code Phone Number [facility] [address] [place] [address], from Last 3 Months or Most Recently Relevant to Health Maintenance Insurance Care Teams Team MemberRelationshipSpecialtyStart [place] [address] [place] [address] PCP - GeneralFamily Yufloqcu06/27/17
--- OUTSIDE RECORDS SUMMARY | 2025-08-21 06:35 | XMS_ITS | Patient Health Record ---
Author Organization [facility]Gu[facility] Address [address] [place] [address] Care Team Providers Care Operations Logistics Analyst Name Role Phone None, No PCP Primary Care Provider UnavailHesham Leonard Unavailable [phone] Allyson Hamilton Unavailable [phone] Sharri Guillaume Unavailable [phone] Allergies Allergen (clinical drug ingredient) Drug/Non Drug Allergy documented on EMR Reaction Allergy Type Onset Date Status angiotensin-converting enzyme inhibitor (FN) ZION Inhib itors Unknown Drug Allergy Active Results Component Value Reference Range Notes ESTRADIOL Reviewed date:04/16/2025 04:37:10 PM Interpretation: Performing Lab:[facility] Phil-Les Lvax9254 [facility] HospitalOunmLZ[address] Gustavo Garcia Notes/Report: 0; 0 ESTRADIOL 29 Mid-Cycle: 64-357 Luteal Phase: 56-214 Postmenopausal: < or = 31 Reference range established on post-pubertal patient population. No pre-pubertal reference range established using this assay. For any patients for whom low Estradiol levels are anticipated (e.g. males, pre-pubertal children and hypogonadal/post-menopausal females), the [facility] Estradiol, Ultrasensitive, LCMSMS assay is recommended (order code 43233). Please note: patients being treated with the drug fulvestrant (Faslodex(R)) have demonstrated significant interference in immunoassay methods for estradiol measurement. The cross reactivity could lead to falsely elevated estradiol test results leading to an inappropriate clinical assessment of estrogen status. Twiigg order code [id number]-Gznrlkwfj, Ultrasensitive LC/MS/MS demonstrates negligible cross reactivity with fulvestrant. Reference Range Follicular Phase: 19-144 FSH Reviewed date:04/16/2025 04:37:10 PM Interpretation: Performing Lab:[facility] [address], [facility] HospitalFhvzJI[address] Gustavo Garcia Notes/Report: 0; 0FSH46.9 Reference Range Follicular Phase 2.5-10.2 Mid-cycle Peak 3.1-17.7 Luteal Phase 1.5- 9.1 Postmenopausal 23.0-116.3 Testosterone, Total (IH) Reviewed date:04/19/2025 09:12:53 AM Interpretation: Performing Lab: Notes/Report: Kristofer Rae ([id number])[facility] Reviewed date:01/17/2025 08:03:35 AM Interpretation: Performing Lab:[facility] [address], [place] LbenLL[address] Gustavo Garcia Notes/Report:FSH70.9 Reference Range Follicular Phase 2.5-10.2 Mid-cycle Peak 3.1-17.7 Luteal Phase 1.5- 9.1 Postmenopausal 23.0-116.3 Testosterone, Total (IH) Reviewed date:01/17/2025 08:03:34 AM Interpretation: Performing Lab: Notes/Report: Kristofer 2 ([id number])Sotero Reviewed date:01/17/2025 08:05:28 AM Interpretation: Performing Lab:[facility] [address], [facility] HospitalTardGG[address] Gustavo Garcia Notes/Report:LH29.3 Reference Range Follicular Phase 1.9-12.5 Mid-Cycle Peak 8.7-76.3 Luteal Phase 0.5-16.9 Postmenopausal 10.0-54.7 Sex Hormone Binding Globulin (IH) Reviewed date:01/17/2025 08:03:35 AM Interpretation: Performing Lab: Notes/Report: Kristofer 2 ([id number])[facility] - LabTestosterone, Free (IH) Reviewed date:01/17/2025 08:03:35 AM Interpretation: Performing Lab: Notes/Report: Kristofer 2 ([id number])[facility] - LabESTRADIOL Reviewed date:03/03/2025 06:56:42 PM Interpretation: Performing Lab:[facility] [address], [place] EyirJV[address] Gustavo Garcia Notes/Report: 0; 8DYKABOYTC02 measurement. The cross reactivity could lead to falsely elevated estradiol test results leading to an inappropriate clinical assessment of estrogen status. Twiigg order code [id number]-Yrjypbbof, Ultrasensitive LC/MS/MS demonstrates negligible cross reactivity with fulvestrant. Reference Range Follicular Phase: 19-144 Mid-Cycle: 64-357 Luteal Phase: 56-214 Postmenopausal: < or = 31 Reference range established on post-pubertal patient population. No pre-pubertal reference range established using this assay. For any patients for whom low Estradiol levels are anticipated (e.g. males, pre-pubertal children and hypogonadal/post-menopausal females), the Twiigg [facility] Estradiol, Ultrasensitive, LCMSMS assay is recommended (order code 75163). Please note: patients being treated with the drug fulvestrant (Faslodex(R)) have demonstrated significant interference in immunoassay methods for estradiol FSH Reviewed date:03/03/2025 06:56:42 PM Interpretation: Performing Lab:[facility]-[place] [address], [facility] HospitalGzymTA[address] Gustavo Garcia Notes/Report: 0; 0FSH48.4 Reference Range Follicular Phase 2.5-10.2 Mid-cycle Peak 3.1-17.7 Luteal Phase 1.5- 9.1 Postmenopausal 23.0-116.3 Testosterone, Total (IH) Reviewed date:03/03/2025 06:56:42 PM Interpretation: Performing Lab: Notes/Report: Access 2 ([id number]), [place] - LabTestosterone, Total (IH) Reviewed date:04/30/2025 03:49:58 PM Interpretation: Performing Lab: Notes/Report: Access 2 ([id number]), [facility] - LabSex Hormone Binding Globulin (IH) Reviewed date:04/30/2025 03:49:58 PM Interpretation: Performing Lab: Notes/Report: Access 2 ([id number]), [facility] - LabTestosterone, Free (IH) Reviewed date:04/30/2025 03:49:58 PM Interpretation: Performing Lab: Notes/Report: Access 2 ([id number]), [place] - LabTestosterone, Total (IH) Reviewed date:05/31/2025 08:48:11 AM Interpretation: Performing Lab: Notes/Report: Kristofer Rae ([id number]) [facility] Reviewed date:05/31/2025 08:48:10 AM Interpretation: Performing Lab:[facility] Alma Rosa Villarreal-[address], [place] GurrolaTomxZD[address] Gustavo Garcia Notes/Report: 0 0FSH13.5 Reference Range Follicular Phase 2.5-10.2 Mid-cycle Peak 3.1-17.7 Luteal Phase 1.5- 9.1 Postmenopausal 23.0-116.3 ESTRADIOL Reviewed date:05/31/2025 08:48:10 AM Interpretation: Performing Lab:[facility] Alma Rosa Villar[address] Red[address], [place] AguilarKerbEX[address] Gustavo Garcia Notes/Report: 0 1QXIHIFPHD90 Reference Range Follicular Phase: 19-144 Mid-Cycle: 64-357 Luteal Phase: 56-214 Postmenopausal: < or = 31 Reference range established on post-pubertal patient population. No pre-pubertal reference range established using this assay. For any patients for whom low Estradiol levels are anticipated (e.g. males, pre-pubertal children and hypogonadal/post-menopausal females), the Twiigg [facility] Estradiol, Ultrasensitive, LCMSMS assay is recommended (order code 81221). Please note: patients being treated with the drug fulvestrant (Faslodex(R)) have demonstrated significant interference in immunoassay methods for estradiol measurement. The cross reactivity could lead to falsely elevated estradiol test results leading to an inappropriate clinical assessment of estrogen status. Twiigg order code [id number]-[id number], Ultrasensitive LC/MS/MS demonstrates negligible cross reactivity with fulvestrant. NO COLLECTION DATE RECEIVED. WE HAVE USED THE DATE THE SPECIMEN WAS RECEIVED BY THIS LABORATORY THE COLLECTION DATE. IF THIS IS INCORRECT, PLEASE CONTACT CLIENT SERVICES. PHONE NUMBER: [phone] Reason For Referral No Information Medications Medication SIG (Take, Route, Frequency, Duration) Notes Start Date End Date Status Vitamin D ActiveVitamin B Plus+RqkzdqQftmpzxjorLndhbpQvcvyyjkkAwgorpOtdfaoxebrtd3tj lozenge 1/2 lozengeActiveEstradiol 0.075 MG/24HR1 patch to skin Transdermal Two times a Week; Duration: 90 days5ActiveEstradiol 0.075 MG/24HR1 patch to skin Transdermal Two times a Week; Duration: 30 daysActiveProgesterone 200 MG1 capsule at bedtime Orally Once a day; Duration: 90 days5Active Social History Tobacco Use: Social History Observation Description Date Details (start date - stop date) Never Smoker NA - NA Tobacco Control (Standard) Question Answer Notes Tobacco use: Nonsmoker Problems Problem Type SNOMED Code ICD Code Onset Dates Problem Status W/U Status Risk Notes Problem Menopause (399302350) Menopausal and fema le climacteric states (N95.1) ActiveconfirmedProblemDisorder of endocrine system (219177228)Low testosterone level in female (E34.9)ActiveconfirmedProblemHereditary hemochromatosis (82979493)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 Vital Signs Blood pressure diastolic 80 mm Hg 08/12/2025 Jcdrms52 in08/12/2025lood pressure xvdreatp424 mm Hg08/12/20254075Ccmbnl881.2 lbs 08/12/2025BMI29.4 kg/m208/12/2025 Encounters Encounter Location Date Provider Diagnosis [facility] [id number] [place] [address] 01/11/2025 Hesham Bushgautam Menopausal and femal e climacteric states N95.1 and Hemochromatosis 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 E83.110 [facility] [address] [place] [address] 01/17/2025 Hesham Bushgautam Menopausal and femal e climacteric states N95.1 and Hemochromatosis 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 E83.110 [facility] [address] [place] [address] [address] [place], [place] [id number] 02/28/2025 Hesham Bushgautam Menopausal and femal e climacteric states N95.1 [facility] [address] [place] [address] 03/07/2025 Sharri Guillaume Menopausal and female climacteric states N95.1 and Hemochromatosis 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 E83.110 [facility] [address] [place] [address] 04/15/2025 Sharri Edwards Menopausal and female climacteric states N95.1 [facility] [address] [facility] [place] [id number] 04/25/2025 Sharri Edwards Menopausal and female climacteric states N95.1 [facility] [address] [facility] [place] [address] 05/02/2025 Sharri Edwards Menopausal and female climacteric states N95.1 and Hemochromatosis 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 E83.110 [facility] [address] [place] [address] 05/28/2025 Sharri Edwards Menopausal and female climacteric states N95.1 [facility] [address] [place] [address] 06/03/2025 Allyson Eul Menopausal and femal e climacteric states N95.1 ; Hemochromatosis 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 E83.110 and Low testosterone level in female E34.9 [facility] [address] [facility] [place] [address] 08/12/2025 Sharri Aundrea Menopausal and female climacteric states N95.1 ; Low testosterone level in female E34.9 and Hemochromatosis 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 E83.110 [facility] [address] [facility] [place] [address] 01/09/2025 Hesham Astudillo [facility] [place] [address] 02/28/2025ndfco [facility] [place] [address]/rittany ArbuckleMinnesCentra [facility] [place] [address]/rittany ArbuckleMinnesChrist Hospital[address] [facility] Hospital[facility] [address] [place] [address]/19/2025Brittany ArbuckleMenopausal and female climacteric states N95.1[facility]lehigh [facility] [address] [facility] [place] [address]/5Brittany ArbuckleMenopausal and female climacteric states N95.1MinJohn [facility] [place] [address]/5Brittany ArbBon [facility] [place] [address]/5Brittany ArbBon [facility] [place] [address]/5Brittany ArbBon Secours [facility] [place] [address]/5Brittany ArbBon Secours [facility] [place] [address]/5Brittany ArbuckleMenopausal and female climacteric states N95.1MinCarilion [facility] Hospital[address] [place] [address]/5Brittany [facility] Aqrvuy[address] [facility] [address] [place] [address]/5Brittany ArbuckleMenopausal and female climacteric states N95.1MinCarilion Roanoke Memorial Hospital[address] [place] [address]/5Andrecherri [facility] Assessments Encounter Date Diagnosis (ICD Code) Assessment Notes Treatment Notes Treatment Clinical Notes Section Notes 03/07/2025 Menopausal and female climacteri c states (ICD-10 - N95.1) 03/07/2025Hemochromatosis 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 (ICD-10 - E83.110)04/15/2025Menopausal and female climacteric states (ICD-10 - N95.1) 04/25/2025Menopausal and female climacteric states (ICD-10 - N95.1)05/02/2025 Menopausal and female climacteric states (ICD-10 - N95.1)05/02/2025 Hemochromatosis 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 (ICD-10 - E83.110) 05/10/2025Menopausal and female climacteric states (ICD-10 - N95.1)05/10/2025 Menopausal and female climacteric states (ICD-10 - N95.1)05/28/2025Menopausal and female climacteric states (ICD-10 - N95.1)06/03/2025Menopausal and female climacteric states (ICD-10 - N95.1)- Continue estradiol 0.75 mg transdermal patch for now, monitor for symptoms - Take progesterone 200 mg PO nightly consistently - Follow up in 4-6 weeks to reassess symptoms and treatment efficacy - If symptoms persist, consider reducing estradiol patch to 0.05 mg or progesterone IUD as alternativeto oral progesterone - Monitor for improvement in menstrual bleeding, cramping, mood, and energy pxrmft3401/11/2025Menopausal and female climacteric states (ICD-10 - N95.1) -HRT Labs drawn today. Reasoning for labs discussed in detail -HRT options reviewed in detail, including oral estradiol, oral progesterone, Bijuva (oral estradiol/progesterone pill), transdermal estradiol patches, transdermal compounded testosterone cream, or estradiol/testosterone pellet preparations risks/benefits, common side effects, costs and dosing schedule. -Counseled on the differences between FDA approved bio-identical hormone replacement, FDA non-hormonal therpies approved for symptoms of menopause, OTC supplements, and non-FDA approved compounded bio-idential hormone replacement. -Patient education and informed consent in HRT packet completed and signed today. -Counseled on associated increased risks for NH, CVA, VTE, and breast cancer with some forms of hormone replacement therapy. HRT could decrease associated lifetime risks, specifically with the use ofbioidentical hormones including estradiol, progesterone, and/or testosterone preparations. Bioidentical hormonal therapies have not been shown to significantly increase risks for NH, CVA, VTE, and/orbreast cancer, but do not guarantee prevention of developing these risks if used. alf associated risks of non-FDA approved bioidential compounded hormones are not known. Copies given of signed forms. -Discussed potential side effects of pellet therapy including fluid retention, swelling, breast tenderness, nipple sensitivity, uterine spotting, mood swings and irritability, acne, hair loss and/or hair growth. -Breast cancer screening policy reviewed and printed handout given. Mammogram up to date -Annual mammogram, clinical breast exam and RUBBER INSULATOR exams recommended -Plan for follow-up in next available visit to review lab results and proceed with treatment options if desired and indicated 01/11/2025Hemochromatosis 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 (ICD-10 - E83.110)01/17/2025Menopausal and female climacteric states (ICD-10 - N95.1) HRT labs reviewed -Discussed treatment options in detail including oral estradiol, oral progesterone, Bijuva (oral estradiol/progesterone pill), transdermal estradiol patches, transdermal compounded testosterone cream, or estradiol/testosterone pellet preparations use of each therapy, common and rare side effects, possible benefits, frequency of use, and cost of each Risks vs. benefits of HRT reviewed today. Contraindications to continue therapy reviewed including breast cancer, VTE, CVA, and/or NH. Mammogram annually is recommended for ongoing therapy. Mammogram up to date Desires to start with twice weekly estradiol patches, oral progesterone for endometrial protection and testosterone compounded sublingual troches/lozenges at 4mg/0.5 lozenge SL daily in AM Counseled on application of estradiol patches to clean dry skin. Can apply to lower abdomen, underwear line, or arms/shoulders. Avoid application to breast tissue. Cautioned on possible side effects of therapy including skin irritation, breast tenderness and vaginal bleeding in women with a uterus. Recommend replacement of new patch if patch falls off before replacement is due. -Counseled on need for progesterone therapy with the initiation of estradiol replacement in women who have a uterus for endometrial protection to reduce the risk for vaginal bleeding and development of abnormalities of the uterine lining. We discussed the importance of consistent daily dosing and to avoid missing/skipping doses to avoid bleeding and endometrial thickening. Common side effects including drowsiness and mood changes (improved vs. worsening mood) discussed. No allergies/sensitivities to peanuts reported. Recommend taking therapy at bedtime to accommodate for common side effect ofdrowsiness -Testosterone compounded sierra/lozenge. This will be ordered through [facility] -Start with 1/2 sierra (4mg) under the tongue or between gum and cheek until is disintegrates -Use in the morning -Mint flavored -Can decrease dose to 1/4 sierra (2mg) if you have any bothersome symptoms including irritability, agitation, feeling jittery, increased acne, or facial hair growth before your follow up Plan repeat labs (estradiol, FSH, total testosterone) and HRT follow up in 6-8 weeks, sooner if anyconcerns. 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 Patient consent for virtual visit was obtained. Originating site: [facility] location Distant site: home Start time:903 Stop time:924 Visit time spent in chart prep, reviewing previous notes, discussing/interpreting lab results, discussing treatment options, risks vs. benefits, and use of each, writing orders, sending prescriptionsand documenting visit note 03/07/2025OtherWill increase estradiol dose. Continue on 100 mg of progesterone daily and 4 mg of testosterone daily. F/u in 6 weeks for labs and visit. 05/02/2025Other Discussed that her testosterone levels are too high. Testosterone can cause polycythemia/erythrocytosis. Unsure its relationship to hemochromotosis. Will discontinue testosterone use until she can discuss with her yoke presser. I would like their opinion on whether or not they think her high levelsof testosterone have any relation to the hemochromotosis and whether or not it is safe for her to continue. We would of course lower her dose to try and get her levels back in physiologic level. For now, will stay off it. Will increase estradiol dose to 0.075 mg patches twice weekly. Will also increase progesterone for endometrial protection. Will do 200 mg daily. Discussed that she might notice more fatigue with this. F/U in 4-6 weeks with labs prior. This visit was conducted with the use of audio and video [employer] system that permits real time communication between the patient and provider. Patient consent for virtual visit was obtained. Originating site: [facility] location Distant site: pt home Start time: 10:29 Stop time: 10:43 06/03/2025OtherToday's visit involved the ongoing management of multiple chronic, interconnected conditions significantly impacting the patient's quality of life and care complexity. Considerable time and cognitiveeffort were dedicated to addressing these conditions, discussing treatment options, coordinating care, patient counseling, and shared decision-making.08/12/2025 Other - continue on current therapies - we do not have an updated testosterone level. Will return in the next 1-2 weeks for an afternoon lab draw. Assuming testosterone is in acceptable range, will plan on staying on current doses and following up in 6 months with labs 1 week prior Plan Of Treatment Next Appt Details Provider Name:Sharri buckley, 08/28/2025 03:45:00 PM, [address], [place], [address], Provider Name:Hesham Astudillo, 01/20/2026 03:45:00 PM, [address], [place], [address], Provider Name:Hesham Astudillo, 02/04/2026 09:30:00 AM, [address], [place], [address], Insurance Providers Payer Name Payer Address Payer Phone Subscriber Number Group Number Insured Name Patient Relationship to Insured Coverage Start Date Coverage End Date [facility] Commercial 2021 (CLIENT Bill) [address] [place] [id number] Jadyn Kelly Self - patient is the insured Medical (General) History Medical History History ICD Code Depression/ Anxiety high blood pressureHemostasisSurgical History Surgery Date(Month/Year) Hospitalization History Reason Date(Month/Year) Child
--- OUTSIDE RECORDS SUMMARY | 2025-08-21 06:35 | XMS_ITS | Encounter Summary ---
Author Organization [facility] Address [address] [place] [address] Care Team Providers Care Counter Tacker Name Role Phone Shad Martell MD Unavailable [phone] LoriBin MD Primary Care Provider [phone] León Shepard OD Unavailable [phone] LoriBin MD Unavailable Bin Sandoval MD Unavailable [place] Vergara Unavailable [phone] Jazz Howell PA-C Unavailable Jazz Howell PA-C Unavailable [phone] Encounter Details DateTypeDepartmentCare Team (Latest Contact Info)Ztbrcwzsbno43/18/2025Travel Social History Tobacco UseTypesPacks/DayYears UsedDateSmoking Tobacco: LgpqvqSfcbglxwiv2Ntom: 2014Passive Smoke Exposure: PastSmokeless Tobacco: Never Comments:quit, [...] times a week03/09/2022How often do you attend confucianist or mormonism services?Never03/09/2022o you belong to any clubs or organizations such as confucianist groups, unions, fraternal or athletic groups, or school groups?No03/09/2022ttends Club or Organization MeetingsNot on file 03/09/2022re you , , , , never , or living with a partner?Grtyoue9403/09/2022UDIT-CAnswerDate RecordedQ1: How often do you have a drink containing alcohol?2-3 times a week03/09/2022Q2: How many drinks containing alcohol do you have on a typical day when you are drinking?1 or Q3: How often do you have six or more drinks on one occasion?Less than fcibjax9503/09/2022HQ-2AnswerDate RecordedPHQ-2 Ijqab919Finmountain [facility] [place] of Occupational Health - Occupational Stress QuestionnaireAnswerDate RecordedDo you feel stress - tense, restless, nervous, or anxious, or unable to sleep at night because yourmind is troubled all the time - these days?Only a lxsmzm5103/09/2022Exercise Vital SignAnswerDate RecordedOn average, how many days [...] in an abandoned building, in an overnight long-term, or couch-surfing.)Yes08/10/2023re you worried about losing your [...] InformationValueDate RecordedSex Assigned at BirthNot on fileLegal OrmGbauti36/04/2012 3:24 AM LATIN PROFESSOR Gender YflrkaohTpjqzk47/25/2025 8:45 AM CDTSexual OrientationNot on file OccupationIndustryJob Start DateJob End DatesalesNot on fileNot on fileNot on fileself employedNot on fileNot on fileNot on filedocumented as of this encounter Plan of Treatment DateTypeDepartmentCare Team (Latest Contact Info)Dzuqhaogfoy85/21/2026 10:15 AM CSTLab [facility] [address] [place] [phone] 09/13/2025 10:00 AM CSTOncology Visit [place] [address] [address] [place] [phone] [place] [address] [address] [place] [phone] 09/13/2025 11:00 AM CSTInfusion Therapy Visit [facility] [address] [address] [phone] [place] [address] [address] [place], [place] [address] documented as of this encounter Visit Diagnoses Not on filedocumented in this encounter Additional Health Concerns AssessmentNoted TimePHQ-9 Depression Total Score: 6003/27/2025 10:49 AM CDT documented as of this encounter Care Teams Team MemberRelationshipSpecialtyStart [place] [address] [place] [address] PCP - GeneralFamily Medicine09/11/23 Shad Martell MD [facility] [facility] [address] [place] [address] MDHematology & Oncology02/24/23 León Shepard OD [address] [place], [place] [address] Optometry11/15/24 [place] [address] [place] [address] Referring PhysicianFamily Medicine11/15/24 [place] [address] [place] [address] Assigned PCP12/12/24 [place] [address] [address] [place] [address] Assigned Cancer Care Provider02/11/25 Jazz Howell PA-C [address] [place] [address] Physician AssistantUrology02/13/25 Jazz Howell PA-C [address] [place] [address] Assigned Surgical Provider04/13/25documented as of this encounter
--- OUTSIDE RECORDS SUMMARY | 2025-08-21 06:35 | XMS_ITS | Patient Health Record ---
Author Organization [facility] Address [address] [place] [address] Phone [phone] Care Team Providers Care Rehabilitation Physician Name Role Phone Sonia Pinto Primary Care Provider CHARLIE Carroll MD Unavailable [phone] Kaleb Ledezma Unavailable Unavailable Allergies No Known Allergies Reason For Referral No Information Medications Medication SIG (Take, Route, Frequency, Duration) Notes Start Date End Date Diagnosis (ICD Code) Status Phentermine HCl 37.5 MG Tablet Oral; Duration: 3 0 Days ActivevalACYclovir HCl 1 GM TabletTAKE 2 TABLETS (2,000 MG) BY MOUTH 2 TIMES DAILY FOR 2 DOSES. START AT EARLIEST SIGN OF OUTBREAK. Oral; Duration: 1 Days ActiveZolpidem Tartrate 5 MG TabletOral; Duration: 30 DaysActivePantoprazole Sodium 40 MG Tablet Delayed ReleaseTAKE 1 TABLET (40 MG) BY MOUTH DAILY , 30-60 MINUTES BEFORE A MEAL, FOR REFLUX. Oral; Duration: 90 DaysActive Social History Tobacco Use: Social History Observation Description Date Details (start date - stop date) Never Smoker NA - NA Sex Observation Social History Observation Description Sex Observation Female Social History Alcohol Use:Social InfoQuestionAnswerNotesAlcohol ScreenDid you have a drink containing alcohol in the past year?Yes? How often did you have a drink containing alcohol in the past year?2 to 4 drinks a month (2 points)? How many drinks did you have on a typical day when you were drinking in the past year?1 or 2 drinks (0 point)? How often did you have 6 or more drinks on one occasion in the past year?Never (0 point)Tswjww6YwqniwjalzcbdlOudugetpMaunqby Use:Social InfoQuestionAnswerNotesTobacco use/smokingAre you anonsmoker Problems Problem Type SNOMED Code ICD Code Dates Problem Status W/U Sta tus Risk Notes Problem Laryngopharyngeal reflux (735157883) Laryngopharyngeal reflux (LPR) (K21.9) Added On:10/17/2023 Active confirmed ProblemGlobus pharyngeus (531582705)Globus pharyngeus (R09.A2) Added On:10/17/2023 Activeconfirmed Plan Of Treatment No Information Insurance Providers Payer Name Payer Address Payer Phone Subscriber Number Group Number Insured Name Patient Relationship to Insured Coverage Start Date Coverage End Date Ton BECKER [address] [place] [address] [id number], MelissaSelf - patient is the [id number] 2023[place] MEDICAL ASSISTANCEPO [address] [address] [place] [phone] Marisela Kelly - patient is the insured
--- OUTSIDE RECORDS SUMMARY | 2025-08-21 06:35 | XMS_ITS | Encounter Summary ---
Author Organization [facility] Address [address] [place] [address]. [place] [address] Care Team Providers Care Process Validation Engineer Name Role Phone Shad Martell MD Unavailable [phone] LoriBin MD Primary Care Provider León Shepard OD Unavailable [phone] LoriBin MD Unavailable Bin Sandoval MD Unavailable [place] Vergara Unavailable [phone] Jazz Howell PA-C Unavailable [phone] Jazz Howell PA-C Unavailable [phone] Encounter Details DateTypeDepartmentCare Team (Latest Contact Info)Vmclzglhwya30/18/2025Telephone [facility] [address] [place] [address] None Social History Tobacco UseTypesPacks/DayYears UsedDateSmoking Tobacco: ClctjuUfxtunfwyi6Jqex: 2014Passive Smoke Exposure: PastSmokeless Tobacco: Never Comments:quit, [...] times a week03/09/2022How often do you attend jain or faith services?Never03/09/2022o you belong to any clubs or organizations such as jain groups, unions, fraternal or athletic groups, or school groups?No03/09/2022ttends Club or Organization MeetingsNot on file 03/09/2022re you , , , , never , or living with a partner?Hsmzgqz8303/09/2022UDIT-CAnswerDate RecordedQ1: How often do you have a drink containing alcohol?2-3 times a week03/09/2022Q2: How many drinks containing alcohol do you have on a typical day when you are drinking?1 or Q3: How often do you have six or more drinks on one occasion?Less than bhvjhzo2303/09/2022HQ-2AnswerDate RecordedPHQ-2 Vsmpa789Finmountain west medical center [place] of Occupational Health - Occupational Stress QuestionnaireAnswerDate RecordedDo you feel stress - tense, restless, nervous, or anxious, or unable to sleep at night because yourmind is troubled all the time - these days?Only a naqvoc4603/09/2022Exercise Vital SignAnswerDate RecordedOn average, how many days [...] in an abandoned building, in an overnight residential, or couch-surfing.)Yes08/10/2023re you worried about losing your [...] InformationValueDate RecordedSex Assigned at BirthNot on fileLegal WjxNhhywy63/04/2012 3:24 AM INSURANCE CLAIMS REPRESENTATIVE Gender FwduoaxzBcyvzc62/25/2025 8:45 AM CDTSexual OrientationNot on file OccupationIndustryJob Start DateJob End DatesalesNot on fileNot on fileNot on fileself employedNot on fileNot on fileNot on filedocumented as of this encounter Miscellaneous Notes * Telephone Encounter - Cliff Bhagat - 07/09/2025 8:53 AM INSURANCE CLAIMS REPRESENTATIVE A user error has taken place: encounter opened in error, closed for administrative reasons. RANCE CLAIMS REPRESENTATIVE documented in this encounter Plan of Treatment DateTypeDepartmentCare Team (Latest Contact Info)Letzwsmtsld25/21/2026 10:15 AM CSTLab [facility] [address] [place] [address] 09/13/2025 10:00 AM CSTOncology Visit [address] [place] [phone] [place] [address] [place] [address] 09/13/2025 11:00 AM CSTInfusion Therapy Visit [facility] [address] [place] [address] [address] [place] [phone] [place] [address] [place], [place] [address] documented as of this encounter Visit Diagnoses Not on filedocumented in this encounter Additional Health Concerns AssessmentNoted TimePHQ-9 Depression Total Score: 6003/27/2025 10:49 AM CDT documented as of this encounter Care Teams Team MemberRelationshipSpecialtyStart [place] [address] [place] [address] PCP - GeneralFamily Medicine09/11/23 Shad Martell MD [facility] [place] [address] MDHematology & Oncology02/24/23 León Shepard OD 6 [place], [place] [address] Optometry11/15/24 [place] [address] [place] [address] Referring PhysicianFamily Medicine11/15/24 [place] [address] [place] [address] Assigned PCP12/12/24 [place] [address] [place] [address] Assigned Cancer Care Provider02/11/25 Jazz Howell PA-C [address] [place] [address] Physician AssistantUrology02/13/25 Jazz Howell PA-C [address] [place], [place] [address] Assigned Surgical Provider04/13/25documented as of this encounter
--- OUTSIDE RECORDS SUMMARY | 2025-08-21 06:36 | XMS_ITS | Clinical Summary ---
Author Organization [facility] Address [address] [place] [address] Care Team Providers Care Brickmason Helper Name Role Phone Shad Martell MD Unavailable [phone] Lori, Bin Chamberlain MD Primary Care Provider León Shepard OD Unavailable [phone] Lori, Bin Chamberlain MD Unavailable LoriBin acuna MD Unavailable Dallas Vergara Unavailable [phone] WasJazz zapata PA-C Unavailable Jazz Howell PA-C Unavailable Allergies Active AllergyReactionsCriticalityNoted DateCommentsAce InhibitorsCough 02/04/2025 Medications MedicationSigDispense QuantityRefillsLast FilledStart DateEnd DateStatus valACYclovir (VALTREX) 1000 mg tablet Indications:Herpes labialisTake 2 tablets (2,000 mg) by mouth 2 times daily for 2 doses. Start at earliest sign of outbreak. 4 tablet 4Active augmented betamethasone dipropionate (DIPROLENE AF) 0.05 % external cream APPLY TO BODY AREAS TWICE A DAY FOR 2-3 WEEKS THEN DOAOSJ404Active zolpidem (AMBIEN) 5 MG tablet Indications:Primary insomniaTake 1 tablet (5 mg) by mouth nightly as needed for sleep. 30 tablet 5Active losartan (COZAAR) 25 MG tablet Indications:ZION-inhibitor coughTake 1 tablet (25 mg) by mouth daily. 90 tablet 5Active LYLLANA 0.0375 MG/24HR BIW patch APPLY 1 PATCH TO SKIN TRANSDERMALLY TWO TIMES PER WEEK.Active progesterone (PROMETRIUM) 100 MG capsule Take 100 mg by mouth daily.Active Silica GEL 5Active VITAMIN D PO Vitamin DActive Multiple Vitamins-Minerals (B COMPLEX VITAMINS PLUS PO) Vitamin B Plus+Active MAGNESIUM ASPARTATE PO MagnesiumActive methylphenidate HCl ER, OSM, (CONCERTA) 36 MG CR tablet Indications:Adult ADHDTake 1 tablet (36 mg) by mouth every morning. 30 tablet 5Active olopatadine (PATADAY) 0.2 % ophthalmic solution Indications:Conjunctivitis, unspecified conjunctivitis type, unspecified lateralityPlace 0.05 mLs (1 drop) into both eyes daily. 3.5 mL 5Active UNABLE TO FIND MEDICATION NAME: testosterone lozengeActive solifenacin (VESICARE) 5 MG tablet Indications:Urinary urgency,Urge urinary incontinenceTake 1 tablet (5 mg) by mouth daily. 90 tablet 5Active amphetamine-dextroamphetamine (ADDERALL) 20 MG tablet Indications:Adult ADHDTake 1 tablet (20 mg) by mouth 2 times daily. 60 tablet /6Active amphetamine-dextroamphetamine (ADDERALL) 20 MG tablet Indications:Adult ADHDTAKE ONE TABLET BY MOUTH TWICE A DAY 60 tablet 5Active amphetamine-dextroamphetamine (ADDERALL) 20 MG tablet Indications:Adult ADHDTake 1 tablet (20 mg) by mouth 2 times daily. 60 tablet /Expired amphetamine-dextroamphetamine (ADDERALL) 20 MG tablet Indications:Adult ADHDTake 1 tablet (20 mg) by mouth 2 times daily. 60 tablet /05/2025Discontinued amphetamine-dextroamphetamine (ADDERALL) 20 MG tablet Indications:Adult ADHDTake 1 tablet (20 mg) by mouth 2 times daily. 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 Provider to review Other acne04/01/2003 Encounters DateTypeDepartmentCare DdhhAmtlftiwzxg79/12/2025[facility] [place] [facility] [address] [place] [phone] Jazz Howell PA-C 07/31/2025Refill [address] [address] Bin Sandoval MD Medication Bjgsqz9207/23/2025[facility] [place] [facility] [address] [place] [phone] Leigh Kelly 07/16/2025 1:30 PM CSTAllied Health/Nurse Visit [facility] [address] [place] [phone] Urinary urgency (Primary Dx)07/16/20256018Lizngm47/18/2025 11:00 AM CSTAllied Health/Nurse Visit [facility] [address] [place] [phone] Urge urinary incontinence (Primary Dx)07/09/20259152Hqnluo86/18/2025Telephone [facility] [address] [place] [phone] None 07/02/2025 1:00 PM CSTAllied Health/Nurse Visit [facility] [place] [address] [place] [phone] Urge Incontinence (PTNS #2)07/02/20256383Uqjrdx88/04/2025 1:00 PM CSTAllied Health/Nurse Visit [facility] [place] [address] [place] [phone] Urge Incontinence (PTNS #1)06/25/20252025Reqftu41/22/2025 3:00 PM CDTInfusion Therapy Visit [facility] [address] [place] [phone] Dallas Vergara PA Hemochromatosis 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 (Primary Dx)06/12/2025 Zdybgs7606/11/2025Refill [address] [phone] Bin Sandoval MD Medication Imoqcp6906/10/2025 1:30 PM CDTOffice Visit [facility] [place] [address] [place] [phone] Jazz Howell PA-C Urinary urgency; Urge urinary atvpmrfcjyjq35/20/2025 11:45 AM CDTLab [facility] [address] [place] [phone] Hemochromatosis 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; Upper abdominal pain06/10/20252351Scnqgs45/12/2025MyC Medical Advice [facility] [place] [address] [place] [phone] Jazz Howell PA-C from Last 3 Months Immunizations ImmunizationAdministration DatesNext DueCOVID-19 MONOVALENT 12+ (Pfizer) 09/08/2021,02/16/2021,01/23/2021HEPA10/15/2010HepB10/15/2010,03/21/2001Influenza (IIV3) PF10/15/2010Nasal Influenza Vaccine 2-49 (FluMist)05/21/2014TDAP (Adacel,Boostrix)09/08/2021TDAP Vaccine (Adacel)05/22/2010 Family History Medical HistoryRelationCommentsCancerMaternal Aunt3 maternal aunts with breast cancerCancerMaternal Grandfatherlung ca., smoker, passed awayCancerMaternal Grandmotherbreast ca., passed awayLipidsMotherThyroid DiseaseMotherRespiratory SisterasthmaRelationStatusCommentsFatherAliveMaternal AuntMaternal Grandfather DeceasedMaternal GrandmotherDeceasedMotherAlivePaternal GrandfatherDeceased Paternal GrandmotherDeceasedSisterAliveSon 1AliveSon 2Alive Social History Tobacco UseTypesPacks/DayYears UsedDateSmoking Tobacco: ImebcwUliavtpzgh4Nlgy: 2014Passive Smoke Exposure: PastSmokeless Tobacco: Never Tobacco Cessation:Counseling Given: Not Answered Comments:quit, was just ocasionally 10 cigarettes on a weekend Alcohol UseStandard Drinks/WeekCommentsYes0 (1 standard drink = 0.6 oz pure alcohol)3-5 weekly, glass wineSocial Connection and Isolation PanelAnswerDate RecordedIn a typical week, how many times do you talk on the phone with family, friends, or neighbors?More than three times a week03/09/2022How often do you get together with friends or relatives?Three times a week03/09/2022How often do you attend orthodox or mormonism services?Never03/09/2022o you belong to any clubs or organizations such as orthodox groups, unions, fraternal or athletic groups, or school groups?No03/09/2022ttends Club or Organization MeetingsNot on file 03/09/2022re you , , , , never , or living with a partner?Jubysaa0003/09/2022UDIT-CAnswerDate RecordedQ1: How often do you have a drink containing alcohol?2-3 times a week03/09/2022Q2: How many drinks containing alcohol do you have on a typical day when you are drinking?1 or Q3: How often do you have six or more drinks on one occasion?Less than krogryb9403/09/2022HQ-2AnswerDate RecordedPHQ-2 Rdpku037[facility] [place] [facility] - Occupational Stress QuestionnaireAnswerDate RecordedDo you feel stress - tense, restless, nervous, or anxious, or unable to sleep at night because yourmind is troubled all the time - these days?Only a oatwlg7903/09/2022Exercise Vital SignAnswerDate RecordedOn average, how many days [...] in an abandoned building, in an overnight halfway, or couch-surfing.)Yes08/10/2023re you worried about losing your [...] InformationValueDate RecordedSex Assigned at BirthNot on fileLegal EznJcuoro20/04/2012 3:24 AM PROJECT BUYER Gender UjzxwmsdEgopwk90/25/2025 8:45 AM CDTSexual OrientationNot on file OccupationIndustryJob Start DateJob End DatesalesNot on fileNot on fileNot on fileself employedNot on fileNot on fileNot on file Last Filed Vital Signs Vital SignReadingTime TakenCommentsBlood Cvimbdwn093/8106/12/2025 3:45 PM CDT Kpzxi73087/22/2025 3:45 PM FAFQjrcrkpeznz18.5 ??C (97.7 ??F)06/12/2025 2:59 PM CDTRespiratory Ocpa3238 2:59 PM CDTOxygen Nsdbwxltce91%06/12/2025 2:59 PM CDTInhaled Oxygen Concentration--Ofhoqg65.1 kg (170 lb)06/10/2025 1:30 PM CDT Usogge510.6 cm (5' 6)06/10/2025 1:30 PM CDTBody Mass Index27.441 1:30 PM CDT Plan of Treatment DateTypeDepartmentCare Team (Latest Contact Info)Rsnngnqmeph83/21/2026 10:15 AM CSTLab [facility] [address] [place] [address] 09/13/2025 10:00 AM CSTOncology Visit [facility] [address] [place] [phone] [place] [address] [place] [address] 09/13/2025 11:00 AM CSTInfusion Therapy Visit [facility] [address] [place] [phone] [place] [address] [place] [address] Health MaintenanceDue DateLast DoneCommentsCT AVYZKHAJKRAE1975FIT 1975FLEX SIG1975sDNA (Cologuard)1975HEPATITIS B VACCINE (3 of 3 - 19+ 3-dose series), 11/09/2000YEARLY PREVENTIVE VISIT , 03/09/2022, 05/22/2010, Additional history exists PNEUMOCOCCAL VACCINE 50+ YEARS (1 of 1 - PCV)2025ZOSTER VACCINE (1 of 2) 2025OVID-19 VACCINE (4 - season)501/, 02/16/2021, 01/23/2021INFLUENZA VACCINE (#1)/, 10/15/2010NNUAL REVIEW OF XMGJXT40605/07/2025, 04/12/2023, 03/09/2022BMP61, 05/10/2025, 01/16/2025, Additional history existsADVANCE CARE BJFJXZDO04/19/2027 03/09/20225792MQZQW35/, 08/05/2010MAMMO SOOTDCEDG06/26/2027 04/16/2025, 04/09/2024, 02/18/2023, Additional history existsHPV TEST06/07/2027 06/07/2022PAP171, 01/24/2019, 05/22/2010, Additional history existsDIABETES MUSNDTPTV89, 05/10/2025, 01/16/2025, Additional history existsDTAP/TDAP/TD VACCINE (3 - Td or Tdap)/, 05/22/20106727OZMJXJUWVHX11/19/203204/OLORECTAL CANCER UXKIWRDQS45/19/2032 HEPATITIS C OCFXIUAMAFylgagimqaod13/10/2023, 3PHQ-2 (once per calendar year)Ypzwyutzp24/06/2025, 03/27/2025, 03/25/2025, Additional history existsHIV SCREENINGDiscontinuedHPV VACCINE (No Doses Required)CompletedMENINGITIS VACCINE Aged OutNo longer eligible based on patient's age to complete this topic Procedures Procedure NamePriorityDate/TimeAssociated DiagnosisCommentsPR POST TIBIAL NEUROSTIMULATION,PERC NEEDLE HFSRDFVPBTacjhxz76/25/2025 2:16 PM PROJECT BUYER Urinary urgency FL POST TIBIAL NEUROSTIMULATION,PERC NEEDLE IFYBINYFKWerqiuf25/18/2025 11:31 AM PROJECT BUYER Urge urinary incontinence FL POST TIBIAL NEUROSTIMULATION,PERC NEEDLE RNWZRYPREGprjxbj68/11/2025 2:22 PM PROJECT BUYER Urge urinary incontinence FL POST TIBIAL NEUROSTIMULATION,PERC NEEDLE EENKBNUJCWbepbvo19/04/2025 2:03 PM PROJECT BUYER Urge urinary incontinence FL MEASURE POST-VOID RESIDUAL URINE/BLADDER CAPACITY, US NON-IMAGINGRoutine 06/10/2025 4:01 PM CDT Urinary urgency Urge urinary incontinence COMPREHENSIVE METABOLIC YRMEGXdogtsb72/20/2025 11:59 AM CDT Upper abdominal pain Hemochromatosis 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 HEMOGLOBIN AND RLLFSGXMMSLyfagrx88/20/2025 11:59 AM CDT Hemochromatosis 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 PGXVLCFRUibszua95/20/2025 11:59 AM CDT Hemochromatosis 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 MA SCREENING BILATERAL W/ KSLOFpbpaaz47/26/2025 2:50 PM CDT Visit for screening mammogram ACUTE HEPATITIS OZJJYZvbmqjs10/10/2023 10:10 AM CDT Hemochromatosis Type 1, 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 (H) GYNECOLOGIC JTFIQYQEEsrnvnq52/17/2022 3:26 PM CDT Encounter for gynecological examination (general) (routine) without abnormal findings HPV HIGH RISK TYPES DNA PDFHSYNIPdtkocb57/17/2022 3:26 PM CDT Encounter for gynecological examination (general) (routine) without abnormal findings LIPID REFLEX TO DIRECT LDL LACNVEmwsmsl42/19/2022 2:35 PM CDT Visit for preventive health examination from Last 3 Months or Most Recently Relevant to Health Maintenance Results * Hemoglobin and hematocrit (06/10/2025 11:59 AM CDT)ComponentValueRef RangeTest MethodAnalysis TimePerformed AtPathologist ErtjgzhhjEwqmvntzuo20.711.7 - 15.7 g/dL06/10/2025 12:01 PM CDTLV IQSUAVDIVREqbxkhhrin89.635.0 - 47.0 %06/10/2025 12:01 PM CDTLV KSPZCUKCUBNND20.078.0 - 100.0 fL06/10/2025 12:01 PM CDTLV LABORATORYSpecimen (Source)Anatomical Location / LateralityCollection Method / VolumeCollection TimeReceived TimeBloodBLOOD SPECIMEN / UnknownVenipuncture / Ucffalj0806/10/2025 11:59 AM CDT1 11:59 AM CDT Narrative Authorizing ProviderResult TypeResult StatusAlexis Indiaszynski PALAB - BLOOD ORDERABLESFinal ResultPerforming OrganizationAddressCity/State/ZIP CodePhone Number LABORATORY [facility] [place] [facility] [address] [facility] Lab (no room number, 1st floor of clinic) [place] [address], [facility] * Ferritin (06/10/2025 11:59 AM CDT)ComponentValueRef RangeTest MethodAnalysis TimePerformed AtPathologist IrlkyfwpcOptmrbtn3479 - 175 ng/mL06/11/2025 1:59 AM CDTUU LABORATORYSpecimen (Source)Anatomical Location / LateralityCollection Method / VolumeCollection TimeReceived TimeBloodBLOOD SPECIMEN / Unknown Venipuncture / Bphbdaj67/ 11:59 AM CDT1 11:59 AM CDT Narrative Authorizing ProviderResult TypeResult StatusAlexis Ursula PALAB - BLOOD ORDERABLESFinal ResultPerforming OrganizationAddressCity/State/ZIP CodePhone Number [facility] LABORATORY [facility] [place] [facility] [address] [facility], [address] [phone] * (ABNORMAL) Comprehensive metabolic panel (06/10/2025 11:59 AM CDT)Component ValueRef RangeTest MethodAnalysis TimePerformed AtPathologist SignatureSodium 240054 - 145 mmol/L1 1:59 AM CDTUU LABORATORYPotassium4.83.4 - 5.3 mmol/L1 1:59 AM CDTUU LABORATORYCarbon Dioxide (CO2)2722 - 29 mmol/L 06/11/2025 1:59 AM CDTUU LABORATORYAnion Gap77 - 15 mmol/L1 1:59 AM CDTUU LABORATORYUrea Qazrghzu40.66.0 - 20.0 mg/dL06/11/2025 1:59 AM CDTUU LABORATORYCreatinine0.590.51 - 0.95 mg/dL06/11/2025 1:59 AM CDTUU LABORATORY GFR Estimate>90>60 mL/min/1.77h12706/11/2025 1:59 AM CDTUU LABORATORYComment: eGFR calculated using 2020 CKD-EPI equation.Calcium9.38.8 - 10.4 mg/dL 06/11/2025 1:59 AM CDTUU VJHTLQNXREIrbyjmrd21887 - 107 mmol/L1 1:59 AM CDTUU QEMTIGIIUEPhjhrqn211(H)70 - 99 mg/dL06/11/2025 1:59 AM CDTUU LABORATORYAlkaline Txyvwaorndp6809 - 150 U/L1 1:59 AM CDTUU TTLMEYNRDJYJZ280 - 45 U/L1 1:59 AM CDTUU GWBICVKLDIQSN881 - 50 U/L 06/11/2025 1:59 AM CDTUU LABORATORYProtein Total6.86.4 - 8.3 g/dL06/11/2025 1:59 AM CDTUU LABORATORYAlbumin4.33.5 - 5.2 g/dL06/11/2025 1:59 AM CDTUU LABORATORYBilirubin Total0.5<=1.2 mg/dL06/11/2025 1:59 AM CDTUU LABORATORY Specimen (Source)Anatomical Location / LateralityCollection Method / Volume Collection TimeReceived TimeBloodBLOOD SPECIMEN / UnknownVenipuncture / Esdeoqy0806/10/2025 11:59 AM CDT1 11:59 AM CDT Narrative Authorizing ProviderResult TypeResult StatusAlexis Ursula PALAB - BLOOD ORDERABLESFinal ResultPerforming OrganizationAddressCity/State/ZIP CodePhone Number U LABORATORY [facility] [place] [facility] [address] [facility], [address] [place] [address] * MA Screening Bilateral w/ Ramon (04/16/2025 2:50 PM CDT)Anatomical Region LateralityModalityBreastBilateralMammographySpecimen (Source)Anatomical Location / LateralityCollection Method / VolumeCollection TimeReceived Time Impressions 04/17/2025 8:03 AM CDT IMPRESSION: ACR BI-RADS Category 1: Negative BREAST CANCER SCREENING RECOMMENDATION: Routine yearly mammography beginning at age 40 or as discussed with your provider. The results and recommendations of this examination will be communicated to the patient. True Carter Narrative 04/17/2025 8:03 AM CDT BILATERAL FULL FIELD DIGITAL SCREENING MAMMOGRAM WITH TOMOSYNTHESIS Performed on: 04/16/25 Compared to: 04/09/2024, 02/18/2023, and 01/27/2022 Technique: ??This study was evaluated with the assistance of Computer-Aided Detection. ??Breast Tomosynthesis was used in interpretation. Findings: There are scattered areas of fibroglandular density. ??There is no radiographic evidence of malignancy. Authorizing ProviderResult TypeResult StatusBin Sandoval MDIMG MAMMOGRAPHY ORDERABLESFinal Result * Acute hepatitis panel (02/28/2023 10:10 AM CDT)ComponentValueRef RangeTest MethodAnalysis TimePerformed AtPathologist SignatureHepatitis A Antibody IgM EmzxwnjoteaAxdtemhraxb48/10/2023 4:29 PM CDTUM [facility] C[facility]/PROT/ENDO Hepatitis B Core Antibody YgAYzxternnheoThzbbbopaoz23/10/2023 4:29 PM CDTUM SPECIALTY CORE/PROT/ENDOHepatitis C YyxvmamhMjwuipkmrdnXxwvubfrgnp76/10/2023 4:29 PM CDTUM SPECIALTY CORE/PROT/ENDOHepatitis B Surface AntigenNonreactive Ttfavfxzijx85/10/2023 4:29 PM CDTUM SPECIALTY CORE/PROT/ENDOSpecimen (Source) Anatomical Location / LateralityCollection Method / VolumeCollection Time Received TimeBloodBLOOD SPECIMEN / UnknownVenipuncture / Fzwiofp7102/28/2023 10:10 AM CDT02/28/2023 10:21 AM CDT Narrative Authorizing ProviderResult TypeResult StatusShad Martell MDLAB - BLOOD ORDERABLESFinal ResultPerforming OrganizationAddressCity/State/ZIP CodePhone Number [facility]Prot/Endo [address] [facility], [address] [phone] * Pap screen with HPV - recommended age 30 - 65 years (06/07/2022 3:26 PM CDT) ComponentValueRef RangeTest MethodAnalysis TimePerformed AtPathologist SignatureInterpretationNegative for Intraepithelial Lesion or Malignancy (NILM)06/10/2022 1:24 PM CDTUM SPECIALTY LABS at 1324 CDTComment Papanicolaou Test Limitations: Cervical cytology is a screening test with limited sensitivity, and regular screening is critical for cancer prevention. Pap tests are primarily effective for the diagnosis/prevention of squamous cell carcinoma, not adenocarcinoma or other cancers. 06/10/2022 1:24 PM CDTUM SPECIALTY LABSSpecimen AdequacySatisfactory for evaluation, endocervical/transformation zone component krwuabj8706/10/2022 1:24 PM CDTUM SPECIALTY LABSClinical VxacvjfycktFJX24/20/2022 1:24 PM CDTUM SPECIALTY LABSReflex TestingYes regardless of fwlxds9906/10/2022 1:24 PM CDTUM SPECIALTY LABSPrevious Abnormal?No06/10/2022 1:24 PM CDTUM SPECIALTY LABSPerforming Labs The technical component of this testing was completed at [facility] Rvthyokrzj22/20/2022 1:24 PM CDTUM SPECIALTY LABSSpecimen (Source)Anatomical Location / LateralityCollection Method / VolumeCollection TimeReceived TimeBrushingCERVIX UTERI STRUCTURE / UnknownNon- blood Collection / Alksaby5706/07/2022 3:26 PM CDT1 3:28 PM CDT Narrative Authorizing ProviderResult TypeResult StatusChecom Marjorie MARTINEZ APFinal ResultPerforming OrganizationAddressCity/State/ZIP CodePhone Number [facility] [address] [facility], [address] [address], [facility] [phone] * HPV High Risk Types DNA Cervical (06/07/2022 3:26 PM CDT)ComponentValueRef RangeTest MethodAnalysis TimePerformed AtPathologist SignatureOther HR HPV ZvdngsdfSkjguwzc47/24/2022 12:44 PM CDTUM MOLECULAR MGYXYHYTHOENWV63 DNA ZgfhnfguXeadecck97/24/2022 12:44 PM CDTUM MOLECULAR WWMPAAICCMJMOV61 DNA WvcodexoQbnjyagi23/24/2022 12:44 PM CDTUM MOLECULAR DIAGNOSTICSFINAL DIAGNOSIS This patient's sample is negative for HPV DNA. This test was developed and its performance characteristics determined by the [facility], Molecular Diagnostics Laboratory. It has not been cleared or approved by the FDA.The laboratory is regulated under CLIA as qualified to perform high-complexity testing. This test is used for clinical purposes. It should not be regarded as investigational or for research. METHODOLOGY: The Gogo Candy 4800 system uses automated extraction, simultaneous amplification of HPV (L1 region) and beta-globin, followed by real time detection of fluorescent labeled HPV and beta globin using specific oligonucleotide probes. The test specifically identifies types HPV 16 DNA and H PV 18 DNA while concurrently detecting the rest of the high risk types (31, 33, 35, 39, 45, 51, 52,56, 58, 59, 66 or 68). COMMENTS: This test is not intended for use as a screening device for woman under age 30 with normal cervical cytology. Results should be correlated with cytologic and histologic findings. Close clinical followup is recommended. 06/14/2022 12:44 PM CDTUM MOLECULAR DIAGNOSTICSSpecimen (Source)Anatomical Location / LateralityCollection Method / VolumeCollection TimeReceived Time BrushingCERVIX UTERI STRUCTURE / UnknownNon-blood Collection / Ilqaemr9906/07/2022 3:26 PM CDT1 9:35 AM CDT Narrative Authorizing ProviderResult TypeResult StatusYojana Benitez DOLAB - BLOOD ORDERABLESFinal ResultPerforming OrganizationAddressCity/State/ZIP CodePhone Number MOLECULAR DIAGNOSTICS [facility] [address] [facility] [address], Room [address] [place] [address], [facility] [phone] * Lipid panel reflex to direct LDL Non-fasting (03/09/2022 2:35 PM CDT)Component ValueRef RangeTest MethodAnalysis TimePerformed AtPathologist Signature Htumtdvwudk982<200 mg/dL03/10/2022 6:15 PM CDTOX YNVJZMKJGVGbjxpoawcixev37<150 mg/dL03/10/2022 6:15 PM CDTOX LABORATORYDirect Measure HDL90>=50 mg/dL 03/10/2022 6:15 PM CDTOX LABORATORYLDL Cholesterol Zkkqvgazet16<=100 mg/dL 03/10/2022 6:15 PM CDTOX LABORATORYNon HDL Waqheokozdv17<130 mg/dL03/10/2022 6:15 PM CDTOX LABORATORYPatient Fasting > 8hrs?Yes03/10/2022 6:15 PM CDTOX LABORATORYSpecimen (Source)Anatomical Location / LateralityCollection Method / VolumeCollection TimeReceived TimeBloodBLOOD SPECIMEN / UnknownVenipuncture / Mdgjszh4603/09/2022 2:35 PM CDT03/09/2022 2:35 PM CDT Narrative OX LABORATORY - 03/10/2022 6:15 PM CDT Cholesterol Desirable: <200 mg/dL Triglycerides Normal: ??Less than 150 mg/dL Borderline High: ??150-199 mg/dL High: ??200-499 mg/dL Very High: ??Greater than or equal to 500 mg/dL Direct Measure HDL Female: ??Greater than or equal to 50 mg/dL Male: ??Greater than or equal to 40 mg/dL LDL Cholesterol Desirable: <100mg/dL Above Desirable: ??100-129 mg/dL Borderline High: ??130-159 mg/dL High: ??160-189 mg/dL Very High: >= 190 mg/dL Non HDL Cholesterol Desirable: ??130 mg/dL Above Desirable: ??130-159 mg/dL Borderline High: ??160-189 mg/dL High: ??190-219 mg/dL Very High: ??Greater than or equal to 220 mg/dL Authorizing ProviderResult TypeResult StatusBin Sandoval MDLAB - BLOOD ORDERABLES Final ResultPerforming OrganizationAddressCity/State/ZIP CodePhone Number [facility] [address] Lab (no room number, 1st floor of clinic) [place] [address], [facility] [phone] from Last 3 Months or Most Recently Relevant to Health Maintenance Insurance * Guarantor: Jadyn Kelly TypeRelation to PatientDate of BirthPhone Billing AddressPersonal/LcmdsoYndy1975 [place] [address] Care Teams Team MemberRelationshipSpecialtyStcalipatria [place] [address] [place], [place] [phone] PCP - GeneralFamily Medicine09/11/23 Shad Martell MD [facility] [address] [place] [address] MDHematology & Oncology02/24/23 León Shepard OD [address] [place], [place] [address] Optometry11/15/24 [place] [address] [place], [place] [phone] Referring PhysicianFamily Medicine11/15/24 [place] [address] [place], [place] [address] Assigned PCP12/12/24 [place] [address] [place] [address] [id number] Assigned Cancer Care Provider02/11/25 Jazz Howell PA-C 500 [place], [place] [address] Physician AssistantUrology02/13/25 Jazz Howell PA-C 500 [place], [place] [address] Assigned Surgical Provider04/13/25
--- OUTSIDE RECORDS SUMMARY | 2025-08-21 06:36 | XMS_ITS | Encounter Summary ---
Author Organization [facility] Address [address] [place] [address] Care Team Providers Care Anthropologist Physical Name Role Phone Shad Martell MD Unavailable [phone] LoriBin MD Primary Care Provider [phone] León Shepard OD Unavailable [phone] LoriBin MD Unavailable Bin Sandoval MD Unavailable Dallas Vergara Unavailable [phone] Jazz Howell PA-C Unavailable [phone] Jazz Howell PA-C Unavailable [phone] Encounter Details DateTypeDepartmentCare Team (Latest Contact Info)Ikifalnsbap23/25/2025Travel Social History Tobacco UseTypesPacks/DayYears UsedDateSmoking Tobacco: EadpclKdmymcswdu3Uils: 2014Passive Smoke Exposure: PastSmokeless Tobacco: Never Comments:quit, [...] times a week03/09/2022How often do you attend mu-ism or christian services?Never03/09/2022o you belong to any clubs or organizations such as mu-ism groups, unions, fraternal or athletic groups, or school groups?No03/09/2022ttends Club or Organization MeetingsNot on file 03/09/2022re you , , , , never , or living with a partner?Xfcqrwi1403/09/2022UDIT-CAnswerDate RecordedQ1: How often do you have a drink containing alcohol?2-3 times a week03/09/2022Q2: How many drinks containing alcohol do you have on a typical day when you are drinking?1 or Q3: How often do you have six or more drinks on one occasion?Less than kemnqqk0803/09/2022HQ-2AnswerDate RecordedPHQ-2 Iwhqz807Fin[facility] [place] of Occupational Health - Occupational Stress QuestionnaireAnswerDate RecordedDo you feel stress - tense, restless, nervous, or anxious, or unable to sleep at night because yourmind is troubled all the time - these days?Only a qwldqz3603/09/2022Exercise Vital SignAnswerDate RecordedOn average, how many days [...] in an abandoned building, in an overnight mcc, or couch-surfing.)Yes08/10/2023re you worried about losing your [...] InformationValueDate RecordedSex Assigned at BirthNot on fileLegal HzcSfsgdk94/04/2012 3:24 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 Gender WoxgorsxRtooah17/25/2025 8:45 AM CDTSexual OrientationNot on file OccupationIndustryJob Start DateJob End DatesalesNot on fileNot on fileNot on fileself employedNot on fileNot on fileNot on filedocumented as of this encounter Plan of Treatment DateTypeDepartmentCare Team (Latest Contact Info)Mnflxhubhio01/21/2026 10:15 AM CSTLab [facility] [address] [place] [address] 09/13/2025 10:00 AM CSTOncology Visit [place] [address] [address] [place] [address] [place] [address] [address] [place] [id number] 09/13/2025 11:00 AM CSTInfusion Therapy Visit [facility] [address] [address] [place] [address] [place] [address] [address] [place], [place] [address] documented as of this encounter Visit Diagnoses Not on filedocumented in this encounter Additional Health Concerns AssessmentNoted TimePHQ-9 Depression Total Score: 6003/27/2025 10:49 AM CDT documented as of this encounter Care Teams Team MemberRelationshipSpecialtyStart [place] [address] [place] [address] PCP - GeneralFamily Medicine09/11/23 Shad Martell MD [facility]5 [address] VALERIO [facility] [address] [place] [address] MDHematology & Oncology02/24/23 León Shepard OD 6 [place], [place] [address] Optometry11/15/24 [place] [address] [place] [address] Referring PhysicianFamily Medicine11/15/24 [place] [address] [place] [address] Assigned PCP12/12/24 [place] [address] [address] [place] [address] Assigned Cancer Care Provider02/11/25 Jazz Howell PA-C 500 [place] [address] Physician AssistantUrology02/13/25 Jazz Howell PA-C 500 [place] [address] Assigned Surgical Provider04/13/25documented as of this encounter
--- OUTSIDE RECORDS SUMMARY | 2025-08-21 06:36 | XMS_ITS | Encounter Summary ---
Author Organization [facility] Address [address] [place] [address] Care Team Providers Care Senior Training And Development Rep Name Role Phone Shad Martell MD Unavailable [phone] LoriBin MD Primary Care Provider León Shepard OD Unavailable [phone] LoriBin acuna MD Unavailable Bin Sandoval MD Unavailable [place] Vergara Unavailable Jazz HowellC Unavailable Jazz Howell PA-C Unavailable [phone] Reason for Visit * ReasonCommentsMedication Refill Encounter Details DateTypeDepartmentCare Team (Latest Contact Info)Fhejnfzhkeg27/10/2025[facility] [address] [place] [address] [place] [address] [place] [address] Medication Refill Social History Tobacco UseTypesPacks/DayYears UsedDateSmoking Tobacco: FxjhxbEjymmtgcaw8Zxpg: 2014Passive Smoke Exposure: PastSmokeless Tobacco: Never Comments:quit, [...] times a week03/09/2022How often do you attend quaker or voodoo services?Never03/09/2022o you belong to any clubs or organizations such as quaker groups, unions, fraternal or athletic groups, or school groups?No03/09/2022ttends Club or Organization MeetingsNot on file 03/09/2022re you , , , , never , or living with a partner?Mpgwwtg6503/09/2022UDIT-CAnswerDate RecordedQ1: How often do you have a drink containing alcohol?2-3 times a week03/09/2022Q2: How many drinks containing alcohol do you have on a typical day when you are drinking?1 or Q3: How often do you have six or more drinks on one occasion?Less than tqfjgml9603/09/2022HQ-2AnswerDate RecordedPHQ-2 Yfqbd463Finuintah basin medical center [place] of Occupational Health - Occupational Stress QuestionnaireAnswerDate RecordedDo you feel stress - tense, restless, nervous, or anxious, or unable to sleep at night because yourmind is troubled all the time - these days?Only a jjvjdk9603/09/2022Exercise Vital SignAnswerDate RecordedOn average, how many days [...] InformationValueDate RecordedSex Assigned at BirthNot on fileLegal FnuRyzupv73/04/2012 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 Gender VbdcglvtQxizni23/25/2025 8:45 AM CDTSexual OrientationNot on file OccupationIndustryJob Start DateJob End DatesalesNot on fileNot on fileNot on fileself employedNot on fileNot on fileNot on filedocumented as of this encounter Plan of Treatment DateTypeDepartmentCare Team (Latest Contact Info)Lysodjhofdz96/21/2026 10:15 AM CSTLab [facility] [address] [place] [address] 09/13/2025 10:00 AM CSTOncology Visit [address] [facility] [place] [address] [place] [address] [place] [place] [address] 09/13/2025 11:00 AM CSTInfusion Therapy Visit [facility] [address] [place] [place] [address] [place] [address] [place] [address] documented as of this encounter Visit Diagnoses Diagnosis Adult ADHD Attention deficit disorder with hyperactivity documented in this encounter Additional Health Concerns AssessmentNoted TimePQ-9 Depression Total Score: 6003/27/2025 10:49 AM CDT documented as of this encounter Care Teams Team MemberRelationshipSpecialtyStart [place] [address] [place] [address] PCP - GeneralFamily Medicine09/11/23 Shad Martell MD [facility] [address] [facility] [address] [place] [address] MDHematology & Oncology02/24/23 León Shepard OD [address] [place] [address] Optometry11/15/24 [place] [address] [place] [address] Referring PhysicianFamily Medicine11/15/24 [place] [address] [place] [address] Assigned PCP12/12/24 [place] [address] [place], [place] [address] Assigned Cancer Care Provider02/11/25 Jazz Howell PA-C 500 [place], [place] [address] Physician AssistantUrology02/13/25 Jazz Howell PA-C 500 [place], [place] [address] Assigned Surgical Provider04/13/25documented as of this encounter
--- OUTSIDE RECORDS SUMMARY | 2025-08-21 06:36 | XMS_ITS | Encounter Summary ---
Author Organization [facility] Address [address] [place] [address]. [place] [address] Care Team Providers Care Vacuum Pan Tender Name Role Phone Shad Martell MD Unavailable [phone] LoriBin MD Primary Care Provider [phone] León Shepard OD Unavailable [phone] LoriBin MD Unavailable Bin Sandoval MD Unavailable [place] Vergara Unavailable [phone] Jazz Howell PA-C Unavailable [phone] Jazz Howell PA-C Unavailable [phone] Encounter Details DateTypeDepartmentCare Team (Latest Contact Info)Jkaaiomrekn05/02/2025[facility] [place] Medical Advice [facility] [address] [place] [address] Leigh Kelly Social History Tobacco UseTypesPacks/DayYears UsedDateSmoking Tobacco: WbxjfmPdfkttvvtr3Rzsp: 2014Passive Smoke Exposure: PastSmokeless Tobacco: Never Comments:quit, was just ocas ionally 10 cigarettes on a weekend Alcohol UseStandard Drinks/WeekCommentsYes0 (1 standard drink = 0.6 oz pure alcohol)3-5 weekly, glass wineSocial Connection and Isolation PanelAnswerDate RecordedIn a typical week, how many times do you talk on the phone with family, friends, or neighbors?More than three times a week07/19/2022How often do you get together with friends or relatives?Three times a week03/09/2022How often do you attend latter day or orthodoxy services?Never03/09/2022o you belong to any clubs or organizations such as latter day groups, unions, fraternal or athletic groups, or school groups?No03/09/2022ttends Club or Organization MeetingsNot on file 03/09/2022re you , , , , never , or living with a partner?Ahdbbgv7503/09/2022UDIT-CAnswerDate RecordedQ1: How often do you have a drink containing alcohol?2-3 times a week03/09/2022Q2: How many drinks containing alcohol do you have on a typical day when you are drinking?1 or Q3: How often do you have six or more drinks on one occasion?Less than dnchqne4103/09/2022HQ-2AnswerDate RecordedPHQ-2 Eadab748Fin[facility] [place] of Occupational Health - Occupational Stress QuestionnaireAnswerDate RecordedDo you feel stress - tense, restless, nervous, or anxious, or unable to sleep at night because yourmind is troubled all the time - these days?Only a mkclbg0203/09/2022Exercise Vital SignAnswerDate RecordedOn average, how many days [...] InformationValueDate RecordedSex Assigned at BirthNot on fileLegal OvqFgjjrm83/04/2012 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 CfqrglhgQpnlgc78/25/2025 8:45 AM CDTSexual OrientationNot on file OccupationIndustryJob Start DateJob End DatesalesNot on fileNot on fileNot on fileself employedNot on fileNot on fileNot on filedocumented as of this encounter Plan of Treatment DateTypeDepartmentCare Team (Latest Contact Info)Gynidzifybo06/21/2026 10:15 AM CSTLab [facility] [address] [place] [address] 09/13/2025 10:00 AM CSTOncology Visit [facility] [address] [place] [address] [facility] [place] [address] [place] [address] [address] [place] [address] 09/13/2025 11:00 AM CSTInfusion Therapy Visit [facility] [address] [place] [address] [place] [address] [place] [address] [place], [place] [address] documented as of this encounter Visit Diagnoses Not on filedocumented in this encounter Additional Health Concerns AssessmentNoted TimePHQ-9 Depression Total Score: 6003/27/2025 10:49 AM CDT documented as of this encounter Care Teams Team MemberRelationshipSpecialtyStart [place] [address] [place] [address] PCP - GeneralFamily Medicine09/11/23 Shad Martell MD [facility]5 [address] [facility] [address] [place] [address] MDHematology & Oncology02/24/23 León Shepard OD [address] [place] [address] Optometry11/15/24 [place] [address] [place] [address] Referring PhysicianFamily Medicine11/15/24 [place] [address] [place] [address] Assigned PCP12/12/24 [place] [address] [address] [place] [address] Assigned Cancer Care Provider02/11/25 Jazz Howell PA-C 500 [place], [place] [address] Physician AssistantUrology02/13/25 Jazz Howell PA-C 500 [place], [place] [address] Assigned Surgical Provider04/13/25documented as of this encounter
--- OUTSIDE RECORDS SUMMARY | 2025-08-21 06:36 | XMS_ITS | Encounter Summary ---
Author Organization [facility] Address [address] [place] [address]. [place] [address] Care Team Providers Care Storehouse Clerk Name Role Phone Shad Martell MD Unavailable [phone] LoriBin MD Primary Care Provider [phone] León Shepard OD Unavailable [phone] LoriBin MD Unavailable Bin Sandoval MD Unavailable [place] Vergara Unavailable [phone] Jazz Howell PA-C Unavailable Jazz Howell PA-C Unavailable [phone] Encounter Details DateTypeDepartmentCare Team (Latest Contact Info)Ucjlvlyykfy27/12/2025[facility] Medical Advice [facility] [place] [address] [place] [address] [address] [place] [address] Jazz Howell PA-C 500 [place] [address] Social History Tobacco UseTypesPacks/DayYears UsedDateSmoking Tobacco: CeutndCdpjooijuw0Orwl: 2014Passive Smoke Exposure: PastSmokeless Tobacco: Never Comments:quit, [...] times a week03/09/2022How often do you attend yazdanism or christianity services?Never03/09/2022o you belong to any clubs or organizations such as yazdanism groups, unions, fraternal or athletic groups, or school groups?No03/09/2022ttends Club or Organization MeetingsNot on file 03/09/2022re you , , , , never , or living with a partner?Wgeatru2703/09/2022UDIT-CAnswerDate RecordedQ1: How often do you have a drink containing alcohol?2-3 times a week03/09/2022Q2: How many drinks containing alcohol do you have on a typical day when you are drinking?1 or Q3: How often do you have six or more drinks on one occasion?Less than nzhicmu9003/09/2022HQ-2AnswerDate RecordedPHQ-2 Enwii191Finblue mountain hospital, [facility] 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 Gender KpgmfhnkHyylul87/25/2025 8:45 AM CDTSexual OrientationNot on file OccupationIndustryJob Start DateJob End DatesalesNot on fileNot on fileNot on fileself employedNot on fileNot on fileNot on filedocumented as of this encounter Plan of Treatment DateTypeDepartmentCare Team (Latest Contact Info)Bkoddknhkyf37/21/2026 10:15 AM CSTLab [facility] [address] [place] [address] 09/13/2025 10:00 AM CSTOncology Visit [facility] [address] [place] [address] [facility] [place] [address] [place] [address] [address] [place] [address] 09/13/2025 11:00 AM CSTInfusion Therapy Visit [facility] [address] [place] [address] [place] [address] [place] [address] [place] [place], [place] [address] documented as of this encounter Visit Diagnoses Not on filedocumented in this encounter Additional Health Concerns AssessmentNoted TimePHQ-9 Depression Total Score: 6003/27/2025 10:49 AM CDT documented as of this encounter Care Teams Team MemberRelationshipSpecialtyStart [place] [address] [place] [address] PCP - GeneralFamily Medicine09/11/23 Shad Martell MD [facility]5 [address] VALER[address] [facility] [address] [place], [place] [address] MDHematology & Oncology02/24/23 León Shepard OD [address] [place] [address] Optometry11/15/24 [place] [address] [place] [address] Referring PhysicianFamily Medicine11/15/24 [place] [address] [place] [address] Assigned PCP12/12/24 [place] [address] [place] [address] [address] Assigned Cancer Care Provider02/11/25 Jazz Howell PA-C 500 [place], [place] [address] Physician AssistantUrology02/13/25 Jazz Howell PA-C [address] [place], [place] [address] Assigned Surgical Provider04/13/25documented as of this encounter
== END 2025-08-21 06:54 | disposition home or self-care (01) ==
PROVIDERS: Emergency Provider Family Medicine; PCP Family Medicine
DX: J10.1 Influenza due to other identified influenza virus with other respiratory manifestations (principal); K22.9 Disease of esophagus, unspecified; R07.9 Chest pain, unspecified
CPT/HCPCS: 36415; 71046; 80053; 83880; 84484; 85025; 85379; 86140; 87631; 99284; 99285; A9270